=== PATIENT | female | born 1990 | race Caucasian/White ===

== ENCOUNTER 2019-12-06 14:40 | Emergency (ER) | payer MEDICAID, SELFPAY ==
[2019-12-06 14:42] VITALS: BP 148/104; PULSE 99; RESP 16; TEMP 36.6; O2SAT 100; BMI 25.7
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
[2019-12-06] MEDS: Amox/Clavulanate 875 MG Tablet PO (16:34)
== END 2019-12-06 16:36 | disposition home or self-care (01) ==
PROVIDERS: Emergency Provider Emergency Medicine; PCP Family Medicine
DX: S02.31XA Fracture of orbital floor, right side, initial encounter for closed fracture (principal); R40.2410 Glasgow coma scale score 13-15, unspecified time; W17.81XA Fall down embankment (hill), initial encounter; Y93.9 Activity, unspecified; Y92.9 Unspecified place or not applicable; F32.9 Major depressive disorder, single episode, unspecified; Z79.899 Other long term (current) drug therapy; F17.200 Nicotine dependence, unspecified, uncomplicated; F10.99 Alcohol use, unspecified with unspecified alcohol-induced disorder
CPT/HCPCS: 70450; 90715; 99283

== ENCOUNTER 2021-10-22 18:40 | Emergency (ER) | payer OTHER, MEDICAID, SELFPAY ==
[2021-10-22 19:01] VITALS: BP 132/95; PULSE 113; RESP 16; TEMP 36.9; O2SAT 97; BMI 25.7
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
== END 2021-10-22 21:43 | disposition home or self-care (01) ==
PROVIDERS: Emergency Provider Emergency Medicine; PCP Family Medicine; Visit Provider Emergency Medicine
DX: S16.1XXA Strain of muscle, fascia and tendon at neck level, initial encounter (principal); S09.90XA Unspecified injury of head, initial encounter; S80.02XA Contusion of left knee, initial encounter; F17.210 Nicotine dependence, cigarettes, uncomplicated; V53.5XXA Driver of pick-up truck or van injured in collision with car, pick-up truck or van in traffic accident, initial encounter; F41.9 Anxiety disorder, unspecified; Z79.899 Other long term (current) drug therapy
CPT/HCPCS: 70450; 72125; 73564; 99282

== ENCOUNTER → 2023-06-01 | Outpatient (CLI) | payer OTHER, SELFPAY ==
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
[2023-06-01 07:12] LABS: Mucous, Urine 0 SEEN /hpf (<or=2+)
[2023-06-01 09:53] LABS: Glucose, Dipstick Normal (Normal); Ketone-Dipstick Negative (Negative); Leukocyte Esterase-Dipstick 100 /ul (Negative); Nitrite-Dipstick Negative (Negative); Occult Blood-Urine 10 /ul (Negative); Protein-Dipstick Negative (Negative); Specific Gravity, Urine 1.015 (1.002-1.030); Urine Bilirubin Dipstick Negative (Negative); Urine Urobilinogen Normal (Normal)
[2023-06-01 09:57] LABS: Color, Urine Yellow (Yellow); Urine Clarity Sl Cloudy (Clear)
[2023-06-01 10:14] LABS: Red Blood Cells-Urine 0-5 SEEN /hpf (0-5); Squamous Epithelial Cells - UA 5-10 SEEN /hpf (5-10); White Blood Cells 5-10 SEEN /hpf (0-5)
[2023-06-01 10:15] LABS: Bacteria 3+ /hpf (None Seen)
[2023-06-04 15:07] LABS: Anti-Nuclear Antibody Test Negative (.); Anti-dsDNA Ab <1 IU/mL (0-9)
== END | disposition home or self-care (01) ==
LOC: MTLAB 07:08
PROVIDERS: PCP Family Medicine; Referring Provider Physician Assistant Medical; Visit Provider Physician Assistant Medical
DX: L93.2 Other local lupus erythematosus (principal)
CPT/HCPCS: 36415; 81001; 86038; 86225

== ENCOUNTER → 2023-06-09 | Outpatient (CLI) | payer OTHER, SELFPAY ==
[2023-06-09 07:08] LABS: Red Blood Cells-Urine 0 SEEN /hpf (0-5)
--- OUTSIDE RECORDS SUMMARY | 2023-06-09 07:22 | XMS RPT_ITS | CCD ---
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 Surface Operator Relationship Specialty Start Date End Date Jasmin Calzada MD [address] [place], [place] [id number] PCP - General Family Practice 07/22/20 Shama Rogers MD [address] [place], [place] [id number] Ophthalmology 03/11/20 Double Surface Operator Relationship Specialty Start Date End Date Jasmin Calzada MD [address] [place], [place] [id number] PCP - General Family Practice 07/22/20 Shama Rogers MD [address] [place] [address] Ophthalmology 03/11/20 Double Surface Operator Relationship Specialty Start Date End Date Jasmin Calzada MD [address] [place] [address] PCP - General Family Practice 07/22/20 Shama Rogers MD [address] [place] [address] Ophthalmology 03/11/20 Double Surface Operator Relationship Specialty Start Date End Date Jasmin Calzada MD [address] [place] [address] PCP - General Family Practice 07/22/20 Shama Rogers MD [address] [facility] [place] [place] [address] Ophthalmology 03/11/20 Double Surface Operator Relationship Specialty Start Date End Date Jasmin Calzada MD [address] [place] [address] PCP - General Family Medicine 07/22/20 Shama Rogers MD [address] [facility] [place] [address] Ophthalmology 03/11/20 Double Surface Operator Relationship Specialty Start Date End Date Jasmin Calzada MD [address] [place] [address] PCP - General Family Medicine 07/22/20 Shama Rogers MD [address] [place] [address] Ophthalmology 03/11/20 Double Surface Operator Relationship Specialty Start Date End Date Jasmin Calzada MD [address] [place] [address] PCP - General Family Medicine 07/22/20 Shama Rogers MD [address] [place] [place] [address] Ophthalmology 03/11/20 Double Surface Operator Relationship Specialty Start Date End Date Jasmin Calzada MD [address] [place], [place] [address] PCP - General Family Medicine 07/22/20 Shama Rogers MD [address] [place] [address] Ophthalmology 03/11/20 Double Surface Operator Relationship Specialty Start Date End Date Jasmin Calzada MD [address] [place] [address] PCP - General Family Medicine 07/22/20 Shama Rogers MD [address] [place] [address] Ophthalmology 03/11/20 Double Surface Operator Relationship Specialty Start Date End Date Jasmin Calzada MD [address] [place], [place] [id number] PCP - General Family Medicine 07/22/20 Shama Rogers MD [address] [place] [address] Ophthalmology 03/11/20 FOR RECORDS PERTAINING TO PATIENTS [...] BE BASED ON THE PRIMARY CLINICAL RECORDS. [facility] [employer] [facility]. provides no warranty or guarantee of the accuracy or completeness of information in this document.
[2023-06-09 10:36] LABS: Color, Urine Yellow (Yellow); Glucose, Dipstick Normal (Normal); Ketone-Dipstick 5 mg/dl (Negative); Leukocyte Esterase-Dipstick 100 /ul (Negative); Nitrite-Dipstick Negative (Negative); Occult Blood-Urine 10 /ul (Negative); Protein-Dipstick 15 mg/dl (Negative); Specific Gravity, Urine 1.015 (1.002-1.030); Urine Bilirubin Dipstick Negative (Negative); Urine Clarity Sl. Cloudy (Clear); Urine Urobilinogen 1 mg/dl (Normal); Urine pH 6.5 (5.0 - 8.0)
[2023-06-09 11:00] LABS: Bacteria 1+ /hpf (None Seen); Mucous, Urine RARE /hpf (<or=2+); Squamous Epithelial Cells - UA 0-5 SEEN /hpf (5-10); White Blood Cells 0-5 SEEN /hpf (0-5)
== END | disposition home or self-care (01) ==
LOC: MTLAB 07:04
PROVIDERS: PCP Family Medicine; Referring Provider Physician Assistant Medical; Visit Provider Physician Assistant Medical
DX: L93.2 Other local lupus erythematosus (principal)
CPT/HCPCS: 81001

== ENCOUNTER → 2023-06-21 | Outpatient (CLI) | payer OTHER, SELFPAY ==
[2023-06-21 14:58] LABS: Color, Urine Yellow (Yellow); Glucose, Dipstick Normal (Normal); Ketone-Dipstick 5 mg/dl (Negative); Leukocyte Esterase-Dipstick Negative /ul (Negative); Nitrite-Dipstick Negative (Negative); Occult Blood-Urine Negative /ul (Negative); Protein-Dipstick Negative (Negative); Urine Bilirubin Dipstick Negative (Negative); Urine Clarity Clear (Clear); Urine Urobilinogen Normal (Normal)
== END | disposition home or self-care (01) ==
LOC: MTLAB 14:00
PROVIDERS: PCP Family Medicine; Referring Provider Physician Assistant Medical; Visit Provider Physician Assistant Medical
DX: R31.9 Hematuria, unspecified (principal)
CPT/HCPCS: 81002

== ENCOUNTER 2025-02-03 09:31 | Inpatient (IN) | payer OTHER, SELFPAY ==
[2025-02-03] VITALS (18 sets, daily range): BP systolic 91–128; BP diastolic 64–85; PULSE 75–108; RESP 14–18; TEMP 35.8–36.6; O2SAT 96–100; BMI 31.4
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
[2025-02-03] MEDS: Lactated Ringers 1,000 ML 999 ML IV (09:40)
--- OUTSIDE RECORDS SUMMARY | 2025-02-03 09:45 | XMS RPT_ITS | CCD ---
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 [address] NEGATIVE PREDICTIVE VALUE Note Normal [facility] Comment on above: Order Comment: Robyn martinez Type: BLOOD SPECIMENOrdering Facility: [facility] Address: [address] [place] [address] Result Comment: The Negative Predictive Value (NPV) for trisomy 21, 18, and 13 is greater than 99%. The NPV for SCA and ESS cannot be calculated as SCA and ESS are only reported when an abnormality is detected. Performed By: #### M AT21 ####[facility] LABCLIA [id number] [place] [address] PERFORMANCE CHARACTERISTICS Note Normal [facility] Comment on above: Order Comment: Robyn martinez Type: BLOOD SPECIMENOrdering Facility: [facility] Address: [address] [place] [address] Result Comment: - ! Sex ! Accuracy: 99.4% ! ! ! ! Region (associated syndrome) ! Est. Sens# ! Est. Spec ! ! ! ! Trisomy 21 (Down Syndrome) ! 99.1% ! 99.9% ! ! ! ! Trisomy 18 (Morgan Syndrome) ! >99.9% ! 99.6% ! ! ! ! Trisomy 13 (Patau Syndrome) ! 91.7% ! 99.7% ! ! ! ! Sex Chromosome Aneuploidies## ! 96.2% ! 99.7% ! ! ! * As reported in [facility] database nstd37 [https://www.ncbi.nlm.nih.gov/dbvar/studies/nstd37/ ] # Estimated Sensitivity. Sensitivity estimated across the observed size distribution of each syndrome [per [facility] database nstd37] and across the range of fractions observed in routine clinical NIPT. Actual sensitivity can also be influenced by other factors such as the size of the event, total sequence counts, amplification bias, or sequence bias. ## Holguin gestation only. Performed By: #### M AT21 ####TabbloIA [id number] [place] [address] POSITIVE PREDICTIVE VALUE N/A Normal [facility] Comment on above: Order Comment: Speci men Type: BLOOD SPECIMENOrdering Facility: [facility] Address: [address] [place] [address] Performed By: #### M AT21 ####AddressReport LABThe RoundtableIA [id number] [place] [address] Reference Lab Test Method Comment Normal [facility] Comment on above: Order Comment: Speci men Type: BLOOD SPECIMENOrdering Facility: [facility] Address: [address] [place] [address] Result Comment: See Notes Circulating cell-free DNA was purified from the plasma component of maternal blood. The extracted DNA was then converted into a genomic DNA library for aneuploidy analysis of chromosomes 21, 18, and 13 via next generation sequencing.[1] Optional findings based on the test order include sex chromosome aneuploidy (SCA)[2], and enhanced sequencing series (ESS)[3], which will only be reported on as an additional finding when an abnormality is detected. SCA testing includes information on X and Y representation, while ESS testing includes deletions in selected regions (22q, 15q, 11q, 8q, 5p, 4p, 1p) and trisomy of chromosomes 16 and 22. Performed By: #### M AT21 ####[email or web address] [facility] LABCLIA [id number] [place] [address] Service comment (Unsp spec) [Interp] Comment Normal [facility] Comment on above: Order Comment: Speci men Type: BLOOD SPECIMENOrdering Facility: [facility] Address: [address] [place] [address] Result Comment: See Notes [employer]. is a subsidiary of [employer], using the brand [employer]. This test was developed and its performance characteristics determined by [employer]. It has not been cleared or approved by the Food and Drug Administration. This laboratory is certified under the Clinical Laboratory Improvement Amendments (CLIA) as qualified to perform high complexity clinical laboratory testing and accredited by the College [employer] [place] [employer] (CAP). If there is future clinical need for adding MaterniT GENOME testing, this specimen will be available until term. [facility] samples will not be retained beyond 60 days. [facility] patients will have to send a new sample for re-sequencing ([facility] Test Code: 355491). Performed By: #### M AT21 ####[email or web address] LABCLIA [id number] [place] [address] Sex Dosage of chromosome-specific cfDNA Nom (cfDNA) Comment Normal [facility] Comment on above: Order Comment: Speci men Type: BLOOD SPECIMENOrdering Facility: [facility] Address: [address] [place] [address] Result Comment: Cons istent with Male Performed By: #### M AT21 ####[email or web address] [facility] LABCLIA [id number] [place] [address] Test performance information Isak (Unsp spec) Comment Normal [facility] Comment on above: Order Comment: Robyn martinez Type: BLOOD SPECIMENOrdering Facility: [facility] Address: [address] [place] [address] Result Comment: The performance characteristics of the MaterniT(R) 21 PLUS laboratory-developed test (LDT) have been determined in a clinical validation study with women at increased risk for chromosomal aneuploidy.[1-4] Performed By: #### M AT21 ####[email or web address] [facility] LABCLIA [id number] [place] [address] Trisomy 13 risk Dosage of chromosome-specific cfDNA Ql (cfDNA) [Interp] Negative Normal [facility] Comment on above: Order Comment: Robyn martinez Type: BLOOD SPECIMENOrdering Facility: [facility] Address: [address] [place] [address] Performed By: #### M AT21 ####[email or web address] [facility] LABCLIA [id number] [place] [address] Trisomy 18 risk Dosage of chromosome-specific cfDNA Ql (Plasma cell-free+WBC DNA) [Interp] Negative Normal [facility] Comment on above: Order Comment: Robyn martinez Type: BLOOD SPECIMENOrdering Facility: [facility] Address: [address] [place] [address] Performed By: #### M AT21 ####[facility] LABCLIA [id number] [place] [address] TSH SerPl-aCncon 08-23-2024 TSH Qn 0.745 m[IU]/L Normal 0.270-4.200 [facility] Comment on above: Order Comment: Robyn martinez Type: BLOOD SPECIMENOrdering Facility: [facility] Address: [address] [place] [address] Result Comment: If t he patient is , TSH reference range varies by gestational period: First Trimester (weeks 9-12): 0.180-2.990 mIU/L Second Trimester: 0.110-3.980 mIU/L Third Trimester: 0.480-4.710 mIU/L Ricky Elena et al. A Practical Approach for the Verifications and Determination of Site- and Trimester-Specific Reference Intervals for Thyroid Function tests in . Thyroid, 2019:29:3:412-420. Willem Murphy, et al. 2017 Guidelines of the [place] Thyroid Association for the Diagnosis and Management of Thyroid Disease during and the . Thyroid, 2017:27:3:315-389. Performed By: #### 2 4323-8, LIPNF, 3016-3 ####[facility] LABCLIA [id number] [place] [id number] [place] Bacteria Ur Culton 5 Bacteria identified Cx Nom (U) ORGANISM ID: 1 10,000 -<50,000 CFU/ml Normal urogenital jesus Normal [facility] Comment on above: Performed By: #### 6 30-4 #### [facility] CLIA [id number] [address] [place] [id number] [place] CNCOon 08-05-2024 CNCO Letter Text Normal [facility] Examination level ultrasound on 08-05-2024 Indication First trimester anatomic survey Advanced maternal age Impression The patient is referred for a first trimester anatomy scan including nuchal translucency measurement as clinically indicated. - Single, live, intrauterine . - Mcroberts rump length measurement is consistent with the established gestational age. - No malformations visualized on a complete first trimester anatomic assessment. - The nuchal translucency measurement is 1.3 mm. - Not all structural malformations can be detected by ultrasound examination. Maternal Structures: Right Ovary: Size 30 mm x 19 mm x 15 mm Left Ovary: Size 16 mm x 21 mm x 14 mm Recommendations - A standard anatomic survey at 16 weeks can be offered and a detailed exam at 20 weeks is recommended for increased risk. Maternal Assessment Height 163 cm Height (ft) 5 ft Height (in) 4 in Physical Exam Initial weight (lb) 129 lb Initial BMI 22.13 kg/m Maternal assessment other: 4 Para 1 REMOTE READ Method Transabdominal ultrasound examination Hol[place] . Number of fetuses: 1 Dating LMP on: 05/05/2024 GA by LMP 13 w + 1 d JANET by LMP: 02/09/2025 GA by prior assessment 13 w + 1 d JANET by prior assessment: 02/09/2025 Ultrasound examination on: 08/05/2024 GA by U/S based upon: CRL GA by U/S 12 w + 5 d JANET by U/S: 02/12/2025 Assigned: based on stated JANET, selected on 08/05/2024 Assigned GA 13 w + 1 d Assigned JANET: 02/09/2025 General Evaluation Cardiac activity present Placenta: anterior Cord vessels: 3 vessel cord Amniotic fluid: normal amount Biometry Standard FHR 143 bpm CRL 63.7 mm 12w 5d 19% Hadlock NT 1.30 mm First Trimester Anatomy Calvarium: normal Falx cerebri: normal Choroid plexus: normal Profile: normal Nasal bone: normal Retronasal triangle: normal Maxilla: normal Mandible: normal Nuchal translucency: Unremarkable Situs: normal Cardiac position: normal Cardiac axis: normal 4-chamber view: normal 4-chamber view with color: normal 0-nzwxny-zcymyps view: normal Abdominal cord insertion: normal Stomach: normal Kidneys: normal Bladder: normal Color doppler of perivesical umbilical arteries: normal Vertebral alignment: normal Arms: normal Hands: normal Legs: normal Feet: normal Maternal Structures Uterus / Cervix Uterus: Visualized Uterus length 126 mm Uterus width 92 mm Uterus height 76 mm Uterus Vol 461.3 cm Ovaries / Tubes / Adnexa Rt ovary: Normal Rt ovary D1 30 mm Rt ovary D2 19 mm Rt ovary D3 15 mm Rt ovary Vol 4.5 cm Lt ovary: Visualized Lt ovary D1 16 mm Lt ovary D2 21 mm Lt ovary D3 14 mm Lt ovary Vol 2.4 cm Performed By: Sydney Curiel RDMS, RVT Read By: Harika Dobbins M.D. MATERNAL MEDICINE [facility] Radiology Study observation (narrative) [facility] Bacteria Ur Culton 5 Bacteria identified Cx Nom (U) ORGANISM ID: 1 >=100,000 CFU/ml Enterococcus faecalis Cephalosporins, clindamycin, and TMP-SMX are not effective for the treatment of enterococcal infections. ORGANISM ID: 1 (ENTEROCOCCUS FAECALIS) ANTIBIOTIC INTERPRETATION LUIS STATUS REFERENCE RANGE Ampicillin S <=2 F Susceptible <=8 , Resistant >8 Vancomycin S 2 F Susceptible <=4 , Intermediate >4 , Resistant >16 Nitrofurantoin S <=16 F Susceptible <=32 , Intermediate >32 , Resistant >64 Abnormal [facility] Comment on above: Performed By: #### 6 30-4 #### [facility] CLIA [id number] [address] [place] [address] [place] CBC W Auto Differential pane l (Bld)on 06-26-2024 Basophils (Bld) [#/Vol] 0.03 10*3/uL Normal <0.11 [facility] Comment on above: Order Comment: Speci men Type: BLOOD SPECIMENOrdering Facility: [facility] Address: [address] [place] [address] Performed By: #### 5 7021-8 ####[facility] [id number] [place] [address] [place] Basophils/100 WBC (Bld) 0.3 % Normal [facility] Comment on above: Order Comment: Speci men Type: BLOOD SPECIMENOrdering Facility: [facility] Address: [address] [place] [address] Performed By: #### 5 7021-8 ####[facility] [id number] [place] [address] [place] Differential cell count method Nom (Bld) Auto Normal [facility] Comment on above: Order Comment: Speci men Type: BLOOD SPECIMENOrdering Facility: [facility] Address: [address] [place] [address] Performed By: #### 5 7021-8 ####[facility] [id number] [place] [address] [place] Eosinophils (Bld) [#/Vol] 0.30 10*3/uL Normal <0.46 [facility] Comment on above: Order Comment: Speci men Type: BLOOD SPECIMENOrdering Facility: [facility] Address: [address] [place] [address] Performed By: #### 5 7021-8 ####[facility] [id number] [place] [address] [place] Eosinophils/100 WBC (Bld) 2.9 % Normal [facility] Comment on above: Order Comment: Speci men Type: BLOOD SPECIMENOrdering Facility: [facility] Address: [address] [place] [address] Performed By: #### 5 7021-8 ####[facility] [id number] [place] [address] [place] Erythrocyte distribution width (RBC) [Ratio] 12.1 % Normal 11.5-15.0 [facility] Comment on above: Order Comment: Speci men Type: BLOOD SPECIMENOrdering Facility: [facility] Address: [address] [place] [address] Performed By: #### 5 7021-8 ####[facility] [id number] [place] [address] [place] Hematocrit (Bld) [Volume fraction] 36.7 % Normal 36.0-46.0 [facility] Comment on above: Order Comment: Speci men Type: BLOOD SPECIMENOrdering Facility: [facility] Address: [address] [place] [address] Performed By: #### 5 7021-8 ####[facility] KOPATTERSONHARIKA [id number] [place] [address] [place] Hemoglobin (Bld) [Mass/Vol] 12.7 g/dL Normal 11.5-15. 5 [facility] Comment on above: Order Comment: Speci men Type: BLOOD SPECIMENOrdering Facility: [facility] Address: [address] [place] [address] Performed By: #### 5 7021-8 ####[facility] [id number] [place] [address] [place] Immature granulocytes (Bld) [#/Vol] 0.07 10*3/uL Normal <0.10 [facility] Comment on above: Order Comment: Speci men Type: BLOOD SPECIMENOrdering Facility: [facility] Address: [address] [place] [address] Performed By: #### 5 7021-8 ####[facility] [id number] [place] [address] [place] Immature granulocytes/100 WBC (Bld) 0.7 % Normal [facility] Comment on above: Order Comment: Speci men Type: BLOOD SPECIMENOrdering Facility: [facility] Address: [address] [place] [address] Performed By: #### 5 7021-8 ####[facility] [id number] [place] [address] [place] Lymphocytes (Bld) [#/Vol] 1.82 10*3/uL Normal 1.00-4.0 0 [facility] Comment on above: Order Comment: Speci men Type: BLOOD SPECIMENOrdering Facility: [facility] Address: [address] [place] [address] Performed By: #### 5 7021-8 ####[facility] KOMaddieNCLIA [id number] [place] [address] [place] Lymphocytes/100 WBC (Bld) 17.3 % Normal [facility] Comment on above: Order Comment: Speci men Type: BLOOD SPECIMENOrdering Facility: [facility] Address: [address] [place] [address] Performed By: #### 5 7021-8 ####[facility] [id number] [place] [address] [place] MCH (RBC) [Entitic mass] 29.7 pg Normal 26.0-34.0 [facility] Comment on above: Order Comment: Speci men Type: BLOOD SPECIMENOrdering Facility: [facility] Address: [address] [place] [address] Performed By: #### 5 7021-8 ####[facility] [id number] [place] [address] [place] MCHC (RBC) [Mass/Vol] 34.6 g/dL Normal 30.5-36.0 Anastacio [facility] Comment on above: Order Comment: Speci men Type: BLOOD SPECIMENOrdering Facility: [facility] Address: [address] [place] [address] Performed By: #### 5 7021-8 ####[facility] [id number] [place] [address] [place] MCV (RBC) [Entitic vol] 85.9 fL Normal 80.0-100.0 [facility] Comment on above: Order Comment: Speci men Type: BLOOD SPECIMENOrdering Facility: [facility] Address: [address] [place] [address] Performed By: #### 5 7021-8 ####[facility]ERNCLIA [id number] [place] [address] [place] Monocytes (Bld) [#/Vol] 0.64 10*3/uL Normal <0.87 [facility] Comment on above: Order Comment: Speci men Type: BLOOD SPECIMENOrdering Facility: [facility] Address: [address] [place] [address] Performed By: #### 5 7021-8 ####[facility] [id number] [place] [address] [place] Monocytes/100 WBC (Bld) 6.1 % Normal [facility] Comment on above: Order Comment: Speci men Type: BLOOD SPECIMENOrdering Facility: [facility] Address: [address] [place] [address] Performed By: #### 5 7021-8 ####[facility] [id number] [place] [address] [place] Neutrophils (Bld) [#/Vol] 7.66 10*3/uL High 1.45-7.5 0 [facility] Comment on above: Order Comment: Speci men Type: BLOOD SPECIMENOrdering Facility: [facility] Address: [address] [place] [address] Performed By: #### 5 7021-8 ####[facility] [id number] [place] [address] [place] Neutrophils/100 WBC (Bld) 72.7 % Normal [facility] Comment on above: Order Comment: Speci men Type: BLOOD SPECIMENOrdering Facility: [facility] Address: [address] [place] [address] Performed By: #### 5 7021-8 ####[facility] [id number] [place] [address] [place] Nucleated RBC (Bld) [#/Vol] 10*3/uL Normal <0.01 [facility] Comment on above: Order Comment: Speci men Type: BLOOD SPECIMENOrdering Facility: [facility] Address: [address] [place] [address] Performed By: #### 5 7021-8 ####[facility] KOSHADE [id number] [place] [address] [place] Nucleated RBC/100 WBC (Bld) [Ratio] 0.0 /100 WBC Normal [facility] Comment on above: Order Comment: Speci men Type: BLOOD SPECIMENOrdering Facility: [facility] Address: [address] [place] [address] Performed By: #### 5 7021-8 ####[facility] KOPATTERSONNCLIA [id number] [place] [address] [place] Platelet mean volume (Bld) [Entitic vol] 11.2 fL Normal 9.0-12.7 [facility] Comment on above: Order Comment: Speci men Type: BLOOD SPECIMENOrdering Facility: [facility] Address: [address] [place] [address] Performed By: #### 5 7021-8 ####[facility]ENTERNCTATYANAA [id number] [place] [address] [place] Platelets (Bld) [#/Vol] 163 10*3/uL Normal 150-400 [facility] Comment on above: Order Comment: Speci men Type: BLOOD SPECIMENOrdering Facility: [facility] Address: [address] [place] [address] Performed By: #### 5 7021-8 ####[facility]ENTERNCLIA [id number] [place] [address] [place] RBC (Bld) [#/Vol] 4.27 10*6/uL Normal 3.90-5.20 [facility] Comment on above: Order Comment: Speci men Type: BLOOD SPECIMENOrdering Facility: [facility] Address: [address] [place] [address] Performed By: #### 5 7021-8 ####[facility]CA [id number] [place] [address] [place] WBC (Bld) [#/Vol] 10.52 10*3/uL Normal 3.70-11.[address] [facility] Comment on above: Order Comment: Speci men Type: BLOOD SPECIMENOrdering Facility: [facility] Address: [address] [place] [address] Performed By: #### 5 7021-8 ####[facility] [id number] [place] [address] [place] HBV surface Ag Ser Qlon HBV surface Ag Ql (S) Negative Normal Negative [facility] Comment on above: Order Comment: Speci men Type: BLOOD SPECIMENOrdering Facility: [facility] Address: [address] [place] [address] Performed By: #### 5 195-3, 44155-1, 92132-5 ####[facility] LABIA [id number] [place] [address] [place] HCV Ab Ser Qlon 06-26-2024 HCV Ab Ql (S) Negative Normal Negative [facility] Comment on above: Order Comment: Speci men Type: BLOOD SPECIMENOrdering Facility: [facility] Address: [address] [place] [address] Result Comment: The result suggests no evidence of infection with Hepatitis C virus. Should recent infection be suspected, repeat testing may be considered 4-6 weeks after this draw. Performed By: #### 1 6128-1 ####[facility] [id number] [place] [address] [place] HIV 1+2 Ab IA Qlon HIV 1 and 2 Ab IA.rapid Nom (S/P/Bld) Normal [facility] Comment on above: Order Comment: Speci men Type: BLOOD SPECIMENOrdering Facility: [facility] Address: [address] [place] [address] Result Comment: Test not indicated. Performed By: #### 5 195-3, 68050-0, 82473-6 ####[facility] LABCLIA [id number] [place] [address] [place] HIV 1+2 Ab+HIV1 p24 Ag IA Ql Non-Reactive Normal Nonreactive [facility] Comment on above: Order Comment: Speci men Type: BLOOD SPECIMENOrdering Facility: [facility] Address: [address] [place] [address] Performed By: #### 5 195-3, 79608-1, 05334-9 ####[facility] LABIA [id number] [place] [address] [place] HIV immunoassay testing algorithm interpretation (S/P/Bld) [Interp] Normal [facility] Comment on above: Order Comment: Speci men Type: BLOOD SPECIMENOrdering Facility: [facility] Address: [address] [place] [address] Result Comment: No e vidence of HIV-1 or HIV-2 infection. Should recent infection be suspected, repeat testing may be considered 2-3 weeks after this draw. [place] Rev. Code 3701.243(E): This information has been disclosed to you from confidential records protected from disclosure by state law. ???You shall make no further disclosure of this information without the specific, written, and informed release of the individual to whom it pertains or as otherwise permitted by state law. A general authorization for the release of medical or other information is not sufficient for the purpose of the release of HIV test results or diagnoses. Performed By: #### 5 195-3, 06256-7, 67783-9 ####[facility] LABIA [id number] [place] [id number] [place] HbA1c (Bld)on 06-26-2024 Average glucose Estimated from glycated hemoglobin (Bld) [Mass/Vol] 82 mg/dL Normal [facility] Comment on above: Order Comment: Speci men Type: BLOOD SPECIMENOrdering Facility: [facility] Address: [address] [place] [address] Result Comment: eAG: (Estimated average glucose) is a calculated value from HgbA1c and is employer relations representative of the average blood glucose level in the last 2-3 month period. Performed By: #### 5 5454-3 ####[facility] LABCLIA [id number] [place] [address] [place] HbA1c (Bld) [Mass fraction] 4.5 % Normal 4.3-5.6 [facility] Comment on above: Order Comment: [facility] Type: BLOOD SPECIMENOrdering Facility: [facility] Address: [address] [place] [address] Result Comment: Amer [place] Diabetes Association guidelines indicate that patients with HgbA1c in the range 5.7-6.4% are at increased risk for development of diabetes, and intervention by lifestyle modification may be beneficial. HgbA1c greater or equal to 6.5% is considered diagnostic of diabetes. Performed By: #### 5 5454-3 ####[facility] LABIA [id number] [address] [place] RUBELLA IGG ANTIBODYon 06-26 RUBELLA IGG AB, QUAL Negative Abnormal Positive [facility] Comment on above: Order Comment: [facility]i [facility] Type: BLOOD SPECIMENOrdering Facility: [facility] Address: [address] [place] [address] Result Comment: The result suggests no history of Rubella vaccination or exposure to Rubella virus, however, some individuals with past history of Rubella vaccination may test negative using this test as immunity to Rubella virus wanes over time after vaccination. Please correlate with vaccination history if applicable. Performed By: #### R UBIGG ####[facility] LABCLIA [id number] [address] [place] Reagin and Treponema pallidu m IgG and IgM [Interp]on 06-26-2024 T. pallidum IgG+IgM IA Ql (S) Non-Reactive Normal Nonreactive [facility] Comment on above: Order Comment: Speci men Type: BLOOD SPECIMENOrdering Facility: [facility] Address: [address] [place] [address] Performed By: #### 5 195-3, 19912-4, 79746-3 ####[facility] LABCLIA [id number] [place] [address] [place] Reagin+T pallidum IgG+IgM Se rPl-Impon 06-26-2024 Reagin and Treponema pallidum IgG and IgM [Interp] Cannot exclude recent Treponemal infection if specimen collected within 7-10 days after appearance of suspect lesions or 2-3 weeks after an exposure. Clinical correlation is required. Normal [facility] Comment on above: Order Comment: Speci men Type: BLOOD SPECIMENOrdering Facility: [facility] Address: [address] [place] [address] Performed By: #### 5 195-3, 32141-8, 96512-2 ####[facility] LABCLIA [id number] [place] [address] [place] TYPE + SCREEN PRENATALon ABO O Normal [facility] Comment on above: Order Comment: Speci men Type: BLOOD SPECIMEN [facility]ing Facility: [facility] Address: [address] [place] [address] Performed By: #### T SPN #### [facility] CLIA [id number] [address] [place] [address] [place] Rh Nom (Bld) Positive Normal [facility] Comment on above: Order Comment: Speci men Type: BLOOD SPECIMEN [facility] Facility: [facility] Address: [address] [place] [address] Performed By: #### T SPN #### [facility] CLIA [id number] [address] [place] [address] [place] TYPE AND SCREEN EXPIRATION 06/29/2024 23:59 Normal [facility] Comment on above: Order Comment: Speci men Type: BLOOD SPECIMEN [facility]ing Facility: [facility] Address: [address] [place] [address] Performed By: #### T LY #### [facility] [place] [id number] [facility] [place] [id number] [id number] [place] Bacteria Ur Culton 5 Bacteria identified Cx Nom (U) ORGANISM ID: 1 >=100,000 CFU/ml Escherichia coli ORGANISM ID: 1 (ESCHERICHIA COLI) ANTIBIOTIC INTERPRETATION LUIS STATUS REFERENCE RANGE Ampicillin S 4 F Susceptible <=8 , Intermediate >8 , Resistant >16 Cefazolin S <=4 F Susceptible 0-16 , Intermediate <0 or >16 , Resistant >16 For uncomplicated urinary tract infections, cefazolin results can be used to predict susceptibility or resistance to cephalexin. Ceftriaxone S <=1 F Susceptible <=1 , Intermediate >1 , Resistant >=4 Cefepime S <=1 F Susceptible <=2 , Susceptible-Dose Dependent >2 , Resistant >=16 Ertapenem S <=0.5 F Susceptible <=0.5 , Intermediate >.5 , Resistant >1 Meropenem S <=0.25 F Susceptible <=1 , Intermediate >1 , Resistant >2 Ampicillin/Sulbact S <=2 F Susceptible <=8 , Intermediate >8 , Resistant >16 Piperacillin/Tazoba c S <=4 F Susceptible <16 , Susceptible-Dose Dependent >=16 , Resistant >=32 Gentamicin S <=1 F Susceptible <=2 , Intermediate >2 , Resistant >=8 Tobramycin S <=1 F Susceptible <4 , Intermediate >=4 , Resistant >=8 Trimeth sulfameth S <=20 F Susceptible <=40 , Resistant >40 Ciprofloxacin S <=0.25 F Susceptible <0.5 , Intermediate >=.5 , Resistant >=1 Nitrofurantoin S <=16 F Susceptible <=32 , Intermediate >32 , Resistant >64 Abnormal [facility] Comment on above: Performed By: #### 6 30-4 #### [facility] CLIA [id number] [address] [place] [address] [facility] C. trachomatis+N. gonorrhoea e DNA FRANCHESCA+probe Ql (Unsp spec)on 06-25-2024 C. trachomatis rRNA FRANCHESCA+probe Ql (Unsp spec) Not detected Normal Not detected [facility] Comment on above: Order Comment: Speci men Type: SWABOrdering Facility: [facility] Address: [address] [place] [address] Performed By: #### T RVAMP, 90458-4 ####[facility] LABCLIA [id number] [address] STATES OF [facility] N. 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 Confirmation of cardiac activity. Estimation of gestational age Impression cardiac activity is visualized, CRL is appropriate for clinical dates, corresponding to JANET 02/09/25 Recommendations Follow up for 1st Trimester Anatomy with Nuchal Translucency as clinically indicated if desired. Method Transabdominal and transvaginal ultrasound examination. View: Adequate visualization Holguin . Number of embryos: 1 Dating LMP on: 05/05/2024 GA by LMP 7 w + 2 d JANET by LMP: 02/09/2025 Ultrasound examination on: 06/25/2024 GA by U/S based upon: CRL GA by U/S 6 w + 5 d JANET by U/S: 02/13/2025 Assigned: based on the LMP, selected on 06/25/2024 Assigned GA 7 w + 2 d Assigned JANET: 02/09/2025 Biometry Standard FHR 144 bpm CRL 8.2 mm 6w 5d 4% Hadlock Assessment Gestational sac: visualized Location: intrauterine Yolk sac: visualized Embryo: visualized CRL 8.2 mm 6w 5d 4% Hadlock Cardiac activity: present FHR 144 bpm General Evaluation Cardiac activity present. FHR 144 bpm Performed By: Yoana Williamson CNP Read By: Yoana Williamson CNP MATERNAL MEDICINE [facility] Radiology Study observation (narrative) [facility] TRICHOMONAS VAGINALIS NAATon 06-25-2024 T. vaginalis DNA FRANCHESCA+probe Ql (Unsp spec) Not detected Normal Not detected [facility] Comment on above: Order Comment: Speci men Type: SWABOrdering Facility: [facility] Address: [address] [place] [address] Performed By: #### T RVAMP, 00871-7 ####[facility] LABCLIA [id number] [place] [address] [place] Urgent Care Visit Reporton 1 04-06-2023 Urgent Care Visit Report [facility] [address], [address] [place] [address] OFFICE VISIT Date of Service: 02/05/24 MR#: [id number] Acct: [id number] Name: KARAN LEIVA Rep #: [id number] 22 : 1990 Provider: KARLY Villegas Age/Sex: 33/F Location: [facility] Status: Signed Intake Vital Signs 02/07/22 12:26 02/05/24 11:21 Height 5 ft 4 in BP 112/74 Blood Pressure Location Rt brachial Position Sitting Respiration 12 Pulse 82 Pulse Source Monitor Temp 98.1 F Temp Source Oral Pulse Oximetry (%) 100 Oxygen Delivery Method room air Intake Visit Reasons: DIARRHEA, JOINT/MUSCLE ACHES Allergies latex Allergy (Verified 02/05/24 11:22) Rash fluoxetine (From Prozac) Adverse Reaction (Verified 02/05/24 11:22) Shortness of breath [facility] Medical History (Updated 02/05/24 @ 14:14 by Erik BRANDT, PA) Gastroenteritis Acute bronchitis, unspecified Back fracture Thoracic injury Pelvis fracture Anxiety delivery delivered Surgical History (Updated 10/22/21 @ 20:10 by Shu Draper) H/O eye surgery Social History Smoking Status: Current every day smoker tobacco type: cigarettes HPI HPI Details: KARAN LEIVA, is a 33 F who presents to the office today for initial evaluation 3-day history of nausea and vomiting and diarrhea, stating her daughter had similar symptoms beginning the day before her started. She notes over the last 24 hours her symptoms improved, nonetheless she is requesting a work excuse for today as she feels unable to report to work at this time. Currently without complaints of fever, chills, sweats, lightheadedness/diz ziness, nausea or vomiting though loose stool persists. No history of hematemesis or hematochezia/melena . No ynca-lgi-ogldnpj products taken to assist. No other associated symptoms and no other alleviating/aggrava ting factors. ROS Const Constitutional: No other (As above) Exam Const General: cooperative, healthy appearing and no acute distress Nutritional Appearance: average body habitus Orientation: alert and awake [facility] Head: normal to inspection Ears: hearing grossly normal bilaterally and external ears normal Nose: external nose normal Face and sinus: normal facial exam and face symmetric Eyes General: appearance normal, both eyes and all related structures Neck Neck: normal visual inspection, full ROM, no lymphadenopathy, no meningeal signs and supple Neck mass: No Thyroid: thyroid normal Lymphatic: no lymphadenopathy noted Chest Chest palpation inspection: normal inspection of the chest Resp Effort Inspection: normal respiratory effort and able to speak in complete sentences Auscultation: Bilateral: Clear to Auscultation Cardio Palpation: normal PMI Rate: regular rate Rhythm: regular rhythm Heart Sounds: S1 normal, S2 normal, no gallops, no murmurs and no rubs Pulses: radial pulses present GI Inspection: normal to inspection Palpation: soft, not firm, no guarding and tender (Mild generalized throughout) not in the epigastrum, not at McBurney's point, Meza's sign negative and with no rebound tenderness Skin General: no rashes or lesions noted Neuro General: patient alert, patient awake and patient oriented x3 Cognition: normal cognition Speech: speech normal Psych Appearance: grossly normal Mental Status: mental status grossly normal Mood: congruent mood Affect: normal affect Speech and Movement: speech and movement normal Attitude: cooperative Coding Level of Care Code Off vis,est,level 2 Diagnoses Gastroenteritis K52.9 Assessment and Plan Assessment and Plan (1) Gastroenteritis: Status: Acute Plan: Examination findings/recommenda tions given with patient acknowledged understanding. Work excuse provided. Supportive measures as instructed today. Follow-up with PCP in 3 to 5 days should symptoms not resolve, ED sooner should symptoms recur/worsen or any other concerns develop. Patient states acknowledging understanding all the above. This note was generated with [employer] dictation software. It may contain incorrect words, spelling, and punctuation that were not noted in checking the note before signing. 02/05/24 1415 Date Erik Weiner Signature: Date (if applicable) CC: Normal [facility] CBC panel Auto (Bld)on 06-26 Erythrocyte distribution width (RBC) [Ratio] 12.0 % 11.5 - 15.0 % [facility] Hematocrit (Bld) [Volume fraction] 39.3 % 36.0 - 46.0 % [facility] Hemoglobin (Bld) [Mass/Vol] 13.4 g/dL 11.5 - 15.5 g/dL [facility] MCH (RBC) [Entitic mass] 29.4 pg 26. 0 - 34.0 pg [facility] MCHC (RBC) [Mass/Vol] 34.1 g/dL 30.5 - 36.0 g/dL [facility] MCV (RBC) [Entitic vol] 86.2 fL 80.0 - 100.0 fL [facility] Nucleated RBC (Bld) [#/Vol] <0.01 k/ uL [facility] Platelet mean volume (Bld) [Entitic vol] 10.7 fL 9.0 - 12.7 fL [facility] Platelets (Bld) [#/Vol] 151 10*3/uL 150 - 400 k/uL [facility] RBC (Bld) [#/Vol] 4.56 10*6/uL 3.90 - 5.2 0 m/uL [facility] WBC (Bld) [#/Vol] 7.98 10*3/uL 3.70 - 11. 00 k/uL [facility] [place] [address].0 m[IU]/mL High <5.0 mIU/m L [facility] TYPE + SCREEN PRENATALon ABO group Nom (Bld) O [facility] Blood group antibody screen Ql Negative [facility] HIstorical Ab Scr Status Negative [facility] Rh Nom (Bld) Positive [facility] Type and Screen Expiration 06/30/2023 23:59 [facility] Bilirubin Test strip Ql (U)O rdered By: Jerrod Pedersen on 06-21-2023 Bilirubin Ql (U) Negative Negative [facility] Ketones Test strip Ql (U)Ord ered By: Jerrod Pedersen on 06-21-2023 Ketones Ql (U) 5 mg/dl Negative [facility] Nitrite Test strip Ql (U)Ord ered By: Jerrod Pedersen on 06-21-2023 Nitrite Ql (U) Negative Negative [facility] Protein Test strip Ql (U)Ord ered By: Jerrod Pedersen on 06-21-2023 Protein Ql (U) Negative Negative [facility] Urine blood detectionOrdered By: Jerrod Pedersen on 06-21-2023 RBC Ql (U) Negative Negative [facility] Urine clarityOrdered By: Andreas Pedersen on 06-21-2023 Clarity (U) Clear Clear [facility] Urine color determinationOrd ered By: Jerrod Pedersen on 06-21-2023 Color (U) Yellow Yellow [facility] Urine glucose detectionOrder ed By: Jerrod Pedersen on 06-21-2023 Glucose Ql (U) Normal mg/dl Normal [facility] Urine leukocyte esterase det ection by dipstickOrdered By: Jerrod Pedersen on 06-21-2023 Leukocyte esterase Test strip Ql (U) Negative Negative [facility] Urine pHOrdered By: Jerrod Rockwell oad on 06-21-2023 pH (U) 5.0 [pH] 5.0 - 8.0 [facility] Urine specific gravity measu rementOrdered By: Jerrod Pedersen on 06-21-2023 Specific gravity (U) [Rel density] 1.020 1.002-1.030 [facility] Urine urobilinogen measureme ntOrdered By: Jerrod Pedersen on 06-21-2023 Urobilinogen Ql (U) Normal mg/dl Normal [facility] Basophil percentageOrdered B y: Jerrod Pedersen on 06-09-2023 Basophil percentage 0-5 SEEN /hpf 0-5 [facility] Bilirubin Test strip Ql (U)O rdered By: Jerrod Pedersne on 06-09-2023 Bilirubin Ql (U) Negative Negative [facility] Ketones Test strip Ql (U)Ord ered By: Jerrod Pedersen on 06-09-2023 Ketones Ql (U) 5 mg/dl Negative [facility] Mucus LM Ql (Urine sed)Order ed By: Jerrod Pedersen on 06-09-2023 Mucus Ql (Urine sed) RARE /hpf [facility] Nitrite Test strip Ql (U)Ord ered By: Jerrod Pedersen on 06-09-2023 Nitrite Ql (U) Negative Negative [facility] No Panel InformationOrdered By: Jerrod Pedersen on 06-09-2023 Urine RBC 0 SEEN /hpf 0-5 [facility] Protein Test strip Ql (U)Ord ered By: Jerrod Pedersen on 06-09-2023 Protein Ql (U) 15 mg/dl Negative [facility] Squamous epithelial cells de tection in urine sediment by light microscopyOrdered By: Jerrod Pedersen on 06-09-2023 Epithelial cells.squamous LM Ql (Urine sed) 0-5 SEEN /hpf 5-10 [facility] Urine blood detectionOrdered By: Jerrod Pedersen on 06-09-2023 RBC Ql (U) 10 /ul Negative [facility] Urine clarityOrdered By: Andreas Pedersen on 06-09-2023 Clarity (U) Sl. Cloudy Clear [facility] Urine color determinationOrd ered By: Jerrod Pedersen on 06-09-2023 Color (U) Yellow Yellow [facility] Urine glucose detectionOrder ed By: Jerrod Pedersen on 06-09-2023 Glucose Ql (U) Normal mg/dl Normal [facility] Urine leukocyte esterase det ection by dipstickOrdered By: Jerrod Pedersen on 06-09-2023 Leukocyte esterase Test strip Ql (U) 100 /ul Negative [facility] Urine pHOrdered By: Jerrod more on 06-09-2023 pH (U) 6.5 [pH] 5.0 - 8.0 [facility] Urine sediment bacteria coun t by microscopy (number/high power field)Ordered By: Jerrod Pedersen on 06-09-2023 Bacteria LM.HPF (Urine sed) [#/Area] 1 /[HPF] None Seen [facility] Urine specific gravity measu rementOrdered By: Jerrod Pedersen on 06-09-2023 Specific gravity (U) [Rel density] 1.015 1.002-1.030 [facility] Urine urobilinogen measureme ntOrdered By: Jerrod Pedersen on 06-09-2023 Urobilinogen Ql (U) 1 mg/dl Normal [facility] Basophil percentageOrdered B y: Jerrod Pedersen on 06-01-2023 Basophil percentage 5-10 SEEN /hpf 0-5 [facility] Bilirubin Test strip Ql (U)O rdered By: Jerrod Pedersen on 06-01-2023 Bilirubin Ql (U) Negative Negative [facility] Ketones Test strip Ql (U)Ord ered By: Jerrod Pedersen on 06-01-2023 Ketones Ql (U) Negative Negative [facility] Mitotic spindle apparatus Ab [Titer] in Serum or PlasmaOrdered By: Jerrod Pedersen on 06-01-2023 Mitotic spindle apparatus Ab [Titer] Not Reportable [facility] Mucus LM Ql (Urine sed)Order ed By: Jerrod Pedersen on 06-01-2023 Mucus Ql (Urine sed) 0 SEEN /hpf [facility] Nitrite Test strip Ql (U)Ord ered By: Jerrod Pedersen on 06-01-2023 Nitrite Ql (U) Negative Negative [facility] No Panel InformationOrdered By: Jerrod Pedersen on 06-01-2023 Anti-Nuclear Antibody Screen Negative . [facility] Comment on above: Negative <1:80 Borde rline 1:80 Positive >1:80ICAP nomenclature: AC-0For more information about Hep-2 cell patterns useANApatterns.org, the official website for theInternational Consensus on Antinuclear Antibody (GIL)Patterns (ICAP).Performed at: [facility] [email or web address] [id number] Director: Seth Corbin PhD, Phone: [phone] Urine RBC 0-5 SEEN /hpf 0-5 [facility] Protein Test strip Ql (U)Ord ered By: Jerrod Pedersen on 06-01-2023 Protein Ql (U) Negative Negative [facility] Serum DNA double strand anti body assay (units/volume)Ordered By: Jerrod Pedersen on 06-01-2023 DNA double strand Ab Qn (S) [IU]/mL 0-9 [facility] Comment on above: Negative <5 Equivoca l 5 - 9 Positive >9 Serum antinuclear antibody ( GIL) detection with nuclear membrane pores pattern by immOrdered By: Jerrod Pedersen on 06-01-2023 Nuclear membrane pores nuclear Ab pattern IF Ql (S) Not Reportable [facility] Serum midbody antibody titer by immunofluorescenceOrdered By: Jerrod Pedersen on 06-01-2023 Midbody Ab IF (S) [Titer] Not Reportable [facility] Serum multiple nuclear dot p attern antinuclear IgG antibody (GIL) titer by immunofluoOrdered By: Jerrod Pedersen on 06-01-2023 Multiple nuclear dots nuclear IgG pattern IF (S) [Titer] Not Reportable [facility] Serum nucleolar nuclear anti body pattern titerOrdered By: Jerrod Pedersen on 06-01-2023 Nucleolar nuclear Ab pattern (S) [Titer] Not Reportable [facility] Serum proliferating cell nuc lear antigen (PCNA) antibody titer by immunofluorescenceOrdered By: Jerrod Pedersen on 06-01-2023 PCNA extractable nuclear Ab IF (S) [Titer] Not Reportable [facility] Serum smooth nuclear envelop e pattern antinuclear antibody (GIL) titerOrdered By: Jerrod Pedersen on 06-01-2023 Rim nuclear Ab pattern (S) [Titer] Not Reportable [facility] Serum speckled nuclear antib sandra pattern titerOrdered By: Jerrod Pedersen on 06-01-2023 Speckled nuclear Ab pattern (S) [Titer] Not Reportable [facility] Squamous epithelial cells de tection in urine sediment by light microscopyOrdered By: Jerrod Pedersen on 06-01-2023 Epithelial cells.squamous LM Ql (Urine sed) 5-10 SEEN /hpf 5-10 [facility] Thin prep Papanicolaou smear with manual screeningOrdered By: Jerrod Pedersen on 06-01-2023 Thin prep Papanicolaou smear with manual screening Not Reportable [facility] Urine blood detectionOrdered By: Jerrod Pedersen on 06-01-2023 RBC Ql (U) 10 /ul Negative [facility] Urine clarityOrdered By: Andreas Pedersen on 06-01-2023 Clarity (U) Sl Cloudy Clear [facility] Urine color determinationOrd ered By: Jerrod Pedersen on 06-01-2023 Color (U) Yellow Yellow [facility] Urine glucose detectionOrder ed By: Jerrod Pedersen on 06-01-2023 Glucose Ql (U) Normal mg/dl Normal [facility] Urine leukocyte esterase det ection by dipstickOrdered By: Jerrod Pedersen on 06-01-2023 Leukocyte esterase Test strip Ql (U) 100 /ul Negative [facility] Urine pHOrdered By: Jerrod more on 06-01-2023 pH (U) 5.0 [pH] 5.0 - 8.0 [facility] Urine sediment bacteria coun t by microscopy (number/high power field)Ordered By: Jerrod Pedersen on 06-01-2023 Bacteria LM.HPF (Urine sed) [#/Area] 3 /[HPF] None Seen [facility] Urine specific gravity measu rementOrdered By: Jerrod Pedersen on 06-01-2023 Specific gravity (U) [Rel density] 1.015 1.002-1.030 [facility] Urine urobilinogen measureme ntOrdered By: Jerrod Pedersen on 06-01-2023 Urobilinogen Ql (U) Normal mg/dl Normal [facility] HCG QUAL UR B/Oon 02-16-2022 status Negative neg - [facility] Quality Check Yes [facility] XR CHEST 2V FRONTAL/LATon [facility] XR Chest PA and Lateralon IMPRESSION: No acute radiographic abnormality. Hydro Station Operator: PSCB Transcribe Date/Time: Feb 16 2022 2:23P Dictated by : STEPHIE BANEGAS MD This examination was interpreted and the report reviewed and electronically signed by: STEPHIE BANEGAS MD on Feb 16 2022 2:24PM [facility] DIVISION OF RADIOLOGY * * *Final Report* * * DATE OF EXAM: Feb 16 2022 2:16PM WOX [id number] - XR CHEST 2V FRONTAL/LAT / PROCEDURE REASON: Cough, unspecified type * * * * Physician Interpretation * * * * EXAMINATION: CHEST RADIOGRAPH (2 VIEW FRONTAL & LATERAL) CLINICAL HISTORY: Cough, unspecified type MQ: XC2_6 EXAM DATE/TIME: 02/16/2022 2:16 PM COMPARISON: Chest x-ray on 01/27/2015 RESULT: Lines, tubes, and devices: None. Lungs and pleura: No consolidation. No lung mass. No pleural effusion. No pneumothorax. Cardiomediastinal silhouette: Normal cardiomediastinal silhouette. Bones and soft tissues: Unremarkable. DIVISION OF RADIOLOGY Provider, [facility] - 02/16/2022 * * *Final Report* * * DATE OF EXAM: Feb 16 2022 2:16PM WOX [id number] - XR CHEST 2V FRONTAL/LAT / PROCEDURE REASON: Cough, unspecified type * * * * Physician Interpretation * * * * EXAMINATION: CHEST RADIOGRAPH (2 VIEW FRONTAL & LATERAL) CLINICAL HISTORY: Cough, unspecified type MQ: XC2_6 EXAM DATE/TIME: 02/16/2022 2:16 PM COMPARISON: Chest x-ray on 01/27/2015 RESULT: Lines, tubes, and devices: None. Lungs and pleura: No consolidation. No lung mass. No pleural effusion. No pneumothorax. Cardiomediastinal silhouette: Normal cardiomediastinal silhouette. Bones and soft tissues: Unremarkable. IMPRESSION IMPRESSION: No acute radiographic abnormality. Hydro Station Operator: DEBBIE Transcribe Date/Time: Feb 16 2022 2:23P Dictated by : STEPHIE BANEGAS MD This examination was interpreted and the report reviewed and electronically signed by: STEPHIE BANEGAS MD on Feb 16 2022 2:24PM EST [facility] Radiology Study observation (narrative) [facility] XR Chest PA and LateralOrder ed By: [facility] Provider on 02-16-2022 [facility] Hemoglobin and Hematocriton 12-13-2019 Hematocrit (Bld) [Volume fraction] 40.0 % 36 - 46 % [facility] Hemoglobin (Bld) [Mass/Vol] 13.6 g/dL 12 - 16 g/dL [facility] Interpretation and review of laboratory results Normal [facility] POC , Urineon 12-12 Beta HCG ( test) Ql (U) Dilute urine specimens, as indicated by a low specific gravity (<1.010) may not contain employer relations representative levels of hCG. If is still suspected, a serum test or repeat urine test using a first morning urine specimen should be considered. [facility] HCG ( test) Ql (U) Negative Negative [facility] Interpretation and review of laboratory results Normal [facility] SCAN OTHER ORDERSon 12-13-19 20 Ordered by an unspecified provider. [facility] COVID-19, MOLECULARon 2019 SARS-COV-2 RNA (ANGIE) Not Detected Normal Not Detecte d [facility] Comment on above: Result Comment: This test was performed under the FDA's Emergency Use Authorization (EUA). Testing was performed using the Toyin SARS-CoV-2 assay on the Angie Toyin 6800 System. This test has not been approved for use in asymptomatic patients and its performance in this patient population has not been evaluated. Negative results do not rule out the presence of SARS-CoV-2/COVID-19. Fact sheets for this EUA can be found at the following links: For Healthcare Providers: https://www.fda.gov/media/002919/download For Patients: https://www.fda.gov/media/955593/download Performed By: #### L [id number] #### [facility] [address] [place] [address] Herbert Collado M.D. [id number] Vital Signs Date Time Vital Sign Value Performing Clinician Renata miranda 12-25-2024 10:11-0400 Body height 162.[address] Herman Calzada MD Work Phone: [phone] [place] [address] 12-25-2024 10:11-0400 Body mass index (BMI) [Ratio] 28.3 kg/m2 Dr. Herman Calzada MD Work Phone: [phone] [place] [address] 12-25-2024 10:11-0400 Body temperature 98.3 [degF] Dr. Herman Calzada MD Work Phone: [phone] [place] [address] 12-25-2024 10:11-0400 Body weight 74.[address] Herman Calzada MD Work Phone: [phone] [place] [address] 12-25-2024 10:11-0400 Diastolic blood pressure 68 mm[Hg] Dr. Herman Calzada MD Work Phone: [phone])[phone] [place] [address] 12-25-2024 10:11-0400 Heart rate 103 /min Dr. Herman Calzada MD Work Phone: 8([phone])[phone] [place] [address] 12-25-2024 10:11-0400 SaO2% (BldA) [Mass fraction] 98 % Dr. Herman Calzada MD Work Phone: 3([phone])[phone] [place] [address] 12-25-2024 10:11-0400 Systolic blood pressure 122 mm[Hg] Dr. Herman Calzada MD Work Phone: [phone] [place] [address] 12-05-2024 11:37-0400 Body mass index (BMI) [Ratio] 28.32 kg/m2 Ivy Gonzales MD Work Phone: [facility] 12-05-2024 11:37-0400 Body weight 74.84 kg Ivy Gonzales MD Work Phone: [facility] 12-05-2024 11:37-0400 Diastolic blood pressure 68 mm[Hg] Ivy Gonzales MD Work Phone: [facility] 12-05-2024 11:37-0400 Systolic blood pressure 114 mm[Hg] Ivy Gonzales MD Work Phone: [facility] 11-21-2024 07:12-0400 Body mass index (BMI) [Ratio] 27.81 kg/m2 Lore Haury [employer] Work Phone: [facility] 11-21-2024 07:12-0400 Body weight 73.48 kg Lore Haury [employer] Work Phone: [facility] 11-21-2024 07:12-0400 Diastolic blood pressure 60 mm[Hg] Lore Haury [employer] Work Phone: [facility] 11-21-2024 07:12-0400 Systolic blood pressure 102 mm[Hg] Lore Haury [employer] Work Phone: [facility] 10-23-2024 06:58-0400 Body mass index (BMI) [Ratio] 25.92 kg/m2 Lore Haury [employer] Work Phone: [facility] 10-23-2024 06:58-0400 Body weight 68.49 kg Lore Haury [employer] Work Phone: [facility] 10-23-2024 06:58-0400 Diastolic blood pressure 64 mm[Hg] Lore Haury [employer] Work Phone: [facility] 10-23-2024 06:58-0400 Systolic blood pressure 108 mm[Hg] Lore Haury [employer] Work Phone: [facility] 09-24-2024 08:49-0400 Body mass index (BMI) [Ratio] 24.55 kg/m2 Ivy Gonzales MD Work Phone: [facility] 09-24-2024 08:49-0400 Body weight 64.86 kg Ivy Gonzales MD Work Phone: [facility] 09-24-2024 08:49-0400 Diastolic blood pressure 60 mm[Hg] Ivy Gonzales MD Work Phone: [facility] 09-24-2024 08:49-0400 Systolic blood pressure 100 mm[Hg] Ivy Gonzales MD Work Phone: [facility] 09-05-2024 08:55-0400 Body mass index (BMI) [Ratio] 24.03 kg/m2 Ivy Gonzales MD Work Phone: [facility] 09-05-2024 08:55-0400 Body weight 63.5 kg Ivy Gonzales MD Work Phone: [facility] 09-05-2024 08:55-0400 Diastolic blood pressure 66 mm[Hg] Ivy Gonzales MD Work Phone: [facility] 09-05-2024 08:55-0400 Systolic blood pressure 104 mm[Hg] Ivy Gonzales MD Work Phone: [facility] 08-23-2024 08:03-0400 Body mass index (BMI) [Ratio] 23.31 kg/m2 Jasmin Calzada MD Work Phone: [facility] 08-23-2024 08:03-0400 Body weight 61.6 kg Jasmin Calzada MD Work Phone: [facility] 08-23-2024 08:03-0400 Diastolic blood pressure 62 mm[Hg] Jasmin Calzada MD Work Phone: [facility] 08-23-2024 08:03-0400 Heart rate 79 /min Jasmin Calzada MD Work Phone: [facility] 08-23-2024 08:03-0400 Respiratory rate 16 /min Jasmin Calzada MD Work Phone: [facility] 08-23-2024 08:03-0400 SaO2% (BldA) [Mass fraction] 98 % Jasmin Calzada MD Work Phone: [facility] 08-23-2024 08:03-0400 Systolic blood pressure 116 mm[Hg] Jasmin Calzada MD Work Phone: [facility] 08-05-2024 08:37-0400 Body mass index (BMI) [Ratio] 22.49 kg/m2 Julia Cordero MD Work Phone: [facility] 08-05-2024 08:37-0400 Body weight 59.42 kg Julia Cordero MD Work Phone: [facility] 08-05-2024 08:37-0400 Diastolic blood pressure 60 mm[Hg] Julia Cordero MD Work Phone: [facility] 08-05-2024 08:37-0400 Systolic blood pressure 98 mm[Hg] Julia Cordero MD Work Phone: [facility] 07-23-2024 09:45-0400 Body mass index (BMI) [Ratio] 22.59 kg/m2 Ivy Gonzales MD Work Phone: [facility] 07-23-2024 09:45-0400 Body weight 59.69 kg Ivy Gonzales MD Work Phone: [facility] 07-23-2024 09:45-0400 Diastolic blood pressure 60 mm[Hg] Ivy Gonzales MD Work Phone: [facility] 07-23-2024 09:45-0400 Systolic blood pressure 100 mm[Hg] Ivy Gonzales MD Work Phone: [facility] 06-25-2024 08:14-0400 Body height 162.6 cm Yoana Teri [employer] Work Phone: [facility] 06-25-2024 08:14-0400 Body mass index (BMI) [Ratio] 22.14 kg/m2 Yoana Teri [employer] Work Phone: [facility] 06-25-2024 08:14-0400 Body weight 58.51 kg Yoana Teri [employer] Work Phone: [facility] 06-25-2024 08:14-0400 Diastolic blood pressure 66 mm[Hg] Yoana Teri [employer] Work Phone: [facility] 06-25-2024 08:14-0400 Systolic blood pressure 112 mm[Hg] Yoana Williamson [employer] Work Phone: [facility] 06-29-2023 13:32-0400 Body weight 61.69 kg Magdaleno Robertson MD Work Phone: [facility] 06-29-2023 13:32-0400 Diastolic blood pressure 76 mm[Hg] Magdaleno Robertson MD Work Phone: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 coated (ECOTRIN LOW STRENGTH) 81 mg EC tablet Take 1 tablet by mouth once daily. 90 tablet 3 vit no.124/iron/folic ( VITAMIN ORAL) Take by mouth once daily. Clobetasol Propionate 0.05 % sham Apply to affected area. ketoconazole (NIZORAL) 2 % shampoo No current facility-administered medications for this visit. ALLERGIES: Drug Ingredient [Benzoyl Peroxide], Fluoxetine, Latex, Lexapro [Escitalopram], Prozac [Fluoxetine Hcl], Seasonal Allergies, Smoke, and Wellbutrin [Bupropion Hcl] PERSONAL HISTORY: SOCIAL HISTORY[1] FAMILY HISTORY: FAMILY HISTORY Problem Relation Age of Onset Heart Mother Glaucoma Mother other (cornea transplant) Mother multiple No Known Problems Father other (over dose) Brother Heart Maternal Grandmother Hypertension Maternal Grandmother Skin Cancer Maternal Grandmother basal cell Cancer Maternal Grandfather liver with metastis Prostate Cancer Paternal Grandfather No Known Problems Daughter Cancer Other 2 first cousins with skin REVIEW OF SYMPTOMS: negative except as noted above PHYSICAL EXAMINATION: VITALS: Weight 78.9 kg (174 lb), last menstrual period 05/05/2024. GENERAL: The patient is well nourished, well hydrated in no acute distress. , The patient is oriented to time, place, and person. NECK: full range of motion LUNGS: Clear to auscultation bilaterally. no wheezes, rhonchi or rales HEART: Regular rate and rhythm, Normal heart sounds, and No murmurs or gallops IMPRESSION: 34yo @ 37.1 weeks PLAN: repeat cs at 39 weeks Pt has been counseled on risks/benefits and alternatives of surgery including but not limited to anesthesia, bleeding, infection, injury to pelvic structures including bowel, bladder, ureters and vessels. Risk of transfusion reviewed. Pre and post op instructions reviewed I have reviewed and updated past medical and surgical history, medications and allergies Julia Cordero MD [1] Social History Tobacco Use Smoking status: Every Day Current packs/day: 0.50 Average packs/day: 0.5 packs/day for 20.0 years (10.0 ttl pk-yrs) Types: Cigarettes Smokeless tobacco: Former Types: Chew Tobacco comments: 3 cigarettes daily and low nicotine vape as of 02/24/23 Vaping Use Vaping status: current everyday user Substances: Flavoring Devices: Pre-filled pod Substance Use Topics Alcohol use: Not Currently Comment: not while Drug use: Not Currently Types: Cocaine, Marijuana [facility] 12-25-2024 Progress note [facility] 12-05-2024 Progress note Formatting of t his note might be different from the original. KJ - S: Karan denies LOF, contractions or vaginal bleeding. She just finished 3hr GTT. O: 30w4d, see flow sheet SENSITIVE EXAM: Sensitive exam not performed. A/P: Assessment & Plan Previous section Repeat scheduled Multigravida of advanced maternal age in third trimester (HCC) 30 weeks gestation of (HCC) 3hr GTT - results pending. Discussed low carb diet and walking daily if screens negative. Reviewed PTL & FM precautions Ivy Gonzales MD [facility] 12-05-2024 Miscellaneous Notes KJ - S: Karan denies LOF, contractions or vaginal bleeding. She just finished 3hr GTT. O: 30w4d, see flow sheet SENSITIVE EXAM: Sensitive exam not performed. A/P: Assessment & Plan Previous section Repeat scheduled Multigravida of advanced maternal age in third trimester (HCC) 30 weeks gestation of (HCC) 3hr GTT - results pending. Discussed low carb diet and walking daily if screens negative. Reviewed PTL & FM precautions Ivy Gonzales MD documented in this encounter [facility] 12-05-2024 Instructions Richi Montague LPN - 12/05/2024 11:35 AM EDT SEQUENTIAL SCREENINGS The [facility] offers sequential screenings for women who are interested in screenings for chromosomal abnormalities and certain defects during a . The sequential screen combines ultrasound and blood tests to determine the risk of chromosomal abnormalities, including Down's Syndrome (Trisomy 21) and Trisomy 18, as well as open neural tube defects including spina bifida. Ultrasound examination is performed between 11 weeks and 13 weeks gestational age. Blood tests are drawn after the ultrasound and again later in the between 15 and 21 weeks gestational age. Please let your physician know if you are interested in this testing. It will require an appointment with our garage door technician. This is not an ultrasound performed by a physician in our office during a routine visit. SIGNS AND SYMPTOMS OF LABOR 1. Contractions every 10 minutes or more often 2. Clear, pink, or brownish fluid (water) leaking from vagina 3. Feeling that baby is pushing down, pressure 4. Low, dull backache 5. Cramps that feel like a period 6. Cramps with or without diarrhea If you notice any of the above symptoms, contact our office at [phone] and ask to speak with a nurse. After hours, you can call doctors registry at [phone] OR call [facility] at [phone] and ask to have the doctor consulting group analyst paged. If you consider this an emergency, dial 9-1-2 or go to your nearest emergency department. NEED HELP? Are you dealing with a violent or abusive relationship? Are you a victim of rape or sexual assult? Call [facility] ([place]) 24 hour Crisis Hotline: 736.247.3437 or 867-501-7259. MANUAL Your Guide to a Healthy manual is now on-line. Visit [email or web address] to download your free copy documented in this encounter [facility] 11-21-2024 Note HNO ID: [id number] Author: ANIYAH GALINDO MA Service: ? 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 Karan Leiva presents today for a vaccination of Tdap. Patient denies an allergy to latex: has latex allergy- gets a rash Patient denies a severe (life-threatening) allergy to a previous dose of Tdap, DTP, DTaP, DT or Td vaccine. Yes Patient denies history of epilepsy or neurological problems: Yes Patient is afebrile and denies being moderately or severely ill: Yes Patient denies history of Guillain-[place] Syndrome (a severe paralytic illness): No Tdap Adacel injection was given without incident. See immunizations for details of immunizations administered today. VIS sheet provided: Yes Provider Lore Abdalla APRN.[employer] was present in office at time of injection. Aniyah Galindo MA [facility] 11-21-2024 History of Presen t illness Narrative Patient identified by name and date of . Karan Leiva presents today for a vaccination of Tdap. Patient denies an allergy to latex: has latex allergy- gets a rash Patient denies a severe (life-threatening) allergy to a previous dose of Tdap, DTP, DTaP, DT or Td vaccine. Yes Patient denies history of epilepsy or neurological problems: Yes Patient is afebrile and denies being moderately or severely ill: Yes Patient denies history of Guillain-[place] Syndrome (a severe paralytic illness): No Tdap Adacel injection was given without incident. See immunizations for details of immunizations administered today. VIS sheet provided: Yes Provider Lore Abdalla APRN.[employer] COUNSEL was present in office at time of injection. Aniyah Galindo MA documented in this encounter [facility] 11-21-2024 Progress note Formatting of t his note might be different from the original. EH - S: Karan is a 34 year old female who presents at 28w4d for a routine visit. Feeling movement. Denies headache, visual changes, chest pain, shortness of breath, vaginal bleeding, leakage of fluid, or dysuria. Feeling well, no complaints. O: See flow sheet Gen: No apparent distress Abd: Gravid, nontender, S=D ASSESSMENT/PLAN: Supervision of high risk in third trimester ([facility]) - ICD9: V23.9, ICD10: O09.93 (primary diagnosis) - Continue PNV and LDA 28 weeks gestation of ([facility]) - ICD9: V22.2, ICD10: Z3A.28 - 1 hour GCT today - Rh positive - TDAP today - LARC form reviewed and signed. Declines. - Depression screen positive: anxiety - plan form discussed and given to Karan - Reviewed how to pre register through [facility] Rubella non-immune status, antepartum ([facility]) - ICD9: 646.83, V15.83, ICD10: O09.899, Z28.39 Tobacco use disorder - ICD9: 305.1, ICD10: F17.200 - No longer smoking, vaping now - Continue to encourage cessation Hx of section - ICD9: V45.89, ICD10: Z98.891 - Planning repeat c/s 02/03 at 12 pm with DM Multigravida of advanced maternal age in third trimester ([facility]) - ICD9: 659.63, ICD10: O09.523 - Age 34 at JANET Anxiety with depression - ICD9: 300.4, ICD10: F41.8 - PHQ 2 positive - Declines counseling due to work schedule - Declines medication - Reports coping well and that this has been ongoing, no changes - Denies thoughts of self harm - Mental health resources provided - To notify should she change her mind about counseling or medication PTL precautions and kick counts reviewed. RTO in 2 weeks or sooner as needed. Lore Abdalla APRN.JIE [facility] 11-21-2024 Miscellaneous Notes EH - S: Karan is a 34 year old female who presents at 28w4d for a routine visit. Feeling movement. Denies headache, visual changes, chest pain, shortness of breath, vaginal bleeding, leakage of fluid, or dysuria. Feeling well, no complaints. O: See flow sheet Gen: No apparent distress Abd: Gravid, nontender, S=D ASSESSMENT/PLAN: Supervision of high risk in third trimester ([facility]) - ICD9: V23.9, ICD10: O09.93 (primary diagnosis) - Continue PNV and LDA 28 weeks gestation of ([facility]) - ICD9: V22.2, ICD10: Z3A.28 - 1 hour GCT today - Rh positive - TDAP today - LARC form reviewed and signed. Declines. - Depression screen positive: anxiety - plan form discussed and given to Karan - Reviewed how to pre register through [facility] Rubella non-immune status, antepartum ([facility]) - ICD9: 646.83, V15.83, ICD10: O09.899, Z28.39 Tobacco use disorder - ICD9: 305.1, ICD10: F17.200 - No longer smoking, vaping now - Continue to encourage cessation Hx of section - ICD9: V45.89, ICD10: Z98.891 - Planning repeat c/s 02/03 at 12 pm with DM Multigravida of advanced maternal age in third trimester ([facility]) - ICD9: 659.63, ICD10: O09.523 - Age 34 at JANET Anxiety with depression - ICD9: 300.4, ICD10: F41.8 - PHQ 2 positive - Declines counseling due to work schedule - Declines medication - Reports coping well and that this has been ongoing, no changes - Denies thoughts of self harm - Mental health resources provided - To notify should she change her mind about counseling or medication PTL precautions and kick counts reviewed. RTO in 2 weeks or sooner as needed. Lore Abdalla APRN.CNP documented in this encounter [facility] 11-21-2024 Instructions Aniyah Galindo MA - 11/21/2024 6:55 AM EDT SEQUENTIAL SCREENINGS The [facility] offers sequential screenings for women who are interested in screenings for chromosomal abnormalities and certain defects during a . The sequential screen combines ultrasound and blood tests to determine the risk of chromosomal abnormalities, including Down's Syndrome (Trisomy 21) and Trisomy 18, as well as open neural tube defects including spina bifida. Ultrasound examination is performed between 11 weeks and 13 weeks gestational age. Blood tests are drawn after the ultrasound and again later in the between 15 and 21 weeks gestational age. Please let your physician know if you are interested in this testing. It will require an appointment with our garage door technician. This is not an ultrasound performed by a physician in our office during a routine visit. SIGNS AND SYMPTOMS OF LABOR 1. Contractions every 10 minutes or more often 2. Clear, pink, or brownish fluid (water) leaking from vagina 3. Feeling that baby is pushing down, pressure 4. Low, dull backache 5. Cramps that feel like a period 6. Cramps with or without diarrhea If you notice any of the above symptoms, contact our office at [phone] and ask to speak with a nurse. After hours, you can call doctors registry at [phone] OR call [facility] at [phone] and ask to have the doctor consulting group analyst paged. If you consider this an emergency, dial 0-8-6 or go to your nearest emergency department. NEED HELP? Are you dealing with a violent or abusive relationship? Are you a victim of rape or sexual assult? Call [facility] ([place]) 24 hour Crisis Hotline: 182.946.4989 or 328-652-1032. MANUAL Your Guide to a Healthy manual is now on-line. Visit [email or web address] to download your free copy documented in this encounter [facility] 10-23-2024 Instructions Lore Abdalla APRN.[employer] COUNSEL - 10/23/2024 7:11 AM EDT How SMOKING Affects Your and Your Baby During Smoking during affects you and your baby's health before, during and after your baby is born. The nicotine (the addictive substance in cigarettes), carbon monoxide and numerous other poisons you inhale from a cigarette are carried through your bloodstream and go directly to your baby. Smoking while will: Lower the amount of oxygen available to you and your growing baby Increase your baby's heart rate Increase the chances of miscarriage and stillbirth Increase the risk that your baby is born prematurely and/or born with low weight Increase your baby's risk of developing respiratory problems The more cigarettes you smoke per day, the greater your baby's chances of developing these and other health problems. There is no "safe" level of smoking for your baby's health. How does secondhand smoke affect me and my baby? Second-hand smoke (also called passive smoke or environmental tobacco smoke) is the combination of smoke from a burning cigarette and smoke exhaled by a smoker. The smoke that merrill off the end of a cigarette or cigar contains more harmful substances ( tar, carbon monoxide, nicotine and others) than the smoke inhaled by the smoker. If you are regularly exposed to second-hand smoke, you increase your and your baby's risk of developing lung cancer, heart disease, emphysema, allergies, asthma and other health problems. Babies exposed to second-hand smoke may also develop reduced lung capacity and are at higher risk for sudden infant syndrome (SIDS). What happens if I keep smoking after my baby is born? If you continue to smoke after your baby is born, you increase his or her chance of developing certain illnesses and problems, such as: Frequent colds Bronchitis and pneumonia Asthma Chronic coughs Ear infections High blood pressure Learning and behavior problems later in childhood Why should I quit smoking? Smoking is the leading cause of preventable in the [place] By quitting you can: Prolong your life Lower your risk of heart disease Lower your risk of developing lung, throat, mouth, pancreatic and bladder cancer Lower your risk of developing breathing problems such as chronic obstructive pulmonary disease (COPD), asthma and emphysema Lower your risk of developing allergies Raise your energy level Improve your appearance; your skin will wrinkle less and look better, and your fingers and teeth will not be yellow Improve your sense of smell and taste Feel healthier overall, with improved self-esteem Save a lot of money (the average smoker spends $740 a year for cigarettes!) How can I quit smoking? There is no one way to quit smoking that works for everyone, since each person has different smoking habits. Here are some tips: Hide your matches, lighters, and ashtrays. Take a deep breath and hold it for five to ten seconds whenever you get the urge to smoke. Designate your home a non-smoking area. Ask people who smoke not to smoke around you. Drink less caffeinated beverages; caffeine may stimulate your urge to smoke. Also avoid alcohol, as it also may increase your urge to smoke and can be harmful to your baby. Change your habits connected with smoking. If you smoked while driving or when feeling stressed, try other activities to replace smoking. Keep mints or gum (preferably sugarless) on hand for those times when you get the urge to smoke. Stay active to keep your mind off smoking and help relieve tension: take a walk, exercise, read a book or try a new a hobby. Look for support from others. Join a support group or smoking cessation program, such as the [facility] Smoking Cessation Program. For more information, please call . Do not go places where many people are smoking such as bars or clubs, and smoking sections of restaurants. Should I use a nicotine replacement to help me quit? Nicotine gum and patches release nicotine into the bloodstream of the smoker who is trying to quit. Although these products can reduce withdrawal symptoms and decrease cravings in smokers who are trying to quit, nicotine is quite toxic and potentially harmful to the fetus (as well as to the infant who is ). Therefore, these and any other products containing nicotine are not always ecommended for the woman who is trying to quit smoking. They may be prescribed in indivdual cases. How will I feel when I quit? The benefits of not smoking start within days of quitting. After you quit, you and your baby's heart beat will return to normal, and your baby will be less likely to develop breathing problems. You may have symptoms of withdrawal because your body is used to nicotine, the addictive substance in cigarettes. You may crave cigarettes, be irritable, feel very hungry, cough often, get headaches or have difficulty concentrating. The withdrawal symptoms are only temporary. They are strongest when you first quit but will go away within 10 to 14 days. When withdrawal symptoms occur, stay in control. Think about your reasons for quitting. Remind yourself that these are signs that your body is healing and getting used to being without cigarettes. Remember that withdrawal symptoms are easier to treat than the major diseases that smoking can cause. Even after the withdrawal is over, expect periodic urges to smoke. However, these cravings are generally short-lived and will go away whether you smoke or not. Don't Smoke! If you smoke again (called a relapse) do not lose hope. Seventy-five percent of those who quit relapse. Most smokers quit three times before they are successful. If you relapse, don't give up! Plan ahead and think about what you will do next time you get the urge to smoke. (This information is provided by the [facility] and is not intended to replace the medical advice of your doctor or health care provider. Please consult your health care provider for advice about a specific medical condition. For additional written health information, please call the Cancer Answer Line at [facility] Monday - Monday 8-4:30 for assistance: [phone]. Or visit [email or web address]/) [facility] s Smoking Cessation Program The [facility] Smoking Cessation Program is a comprehensive, multifaceted program that can be tailored to your individual needs. We offer a variety of services designed to help you throughout the process, including office visits, distance health visits (virtual or telephone), and the eCoach program or pharmacy consultations. To schedule, call [phone] Appointments: An office visit: This is a one-on-one approach where you go to an office and meet with the provider to discuss your options for quitting. Distance health visits: This type of visit can be completed via virtual visit or telephone visit. Virtual visits require a smartphone, tablet or computer with access to a webcam, microphone and Internet connection. You will need to sign up for Tutor Assignment prior to your virtual visit. Telephone visits can be completed via audio only if patient does not have access to the above Pharmacotherapy Nicotine replacement therapy (patches, gum, lozenges, inhalers or nasal spray) Bupropion (Wellbutrin) Chantix Integrative and Lifestyle Medicine Services: Acupuncture Holistic Psychotherapy Meditation Yoga And more The eCoach program Expert tips tailored to you Behavioral replacements Recognizing individual triggers On your schedule Pharmacy consultation You can meet with a pharmacist (either online or in person) to discuss smoking cessation medications, including: Nicotine replacement therapy: gum, patches, lozenges, inhalers or nasal spray Bupropion SR Varenicline (Chantix ) The [place] [employer] (ACS) has a section devoted to quitting tobacco with information on where to get help, interactive tools, the relationship of tobacco and cancer, how to keep your kids smoke-free, smoke-free communities and the ACS s annual [place] Smokeout. Visit this link for more info: https://www.cancer.org/cancer/ri sk-prevention/tobacco/guide-quit ting-smoking.html The [place] [employer] has tools, tips, support and fact sheets to help you stop smoking or to help a loved one quit. There s also more information about [place] From Smoking , the program we use in our smoking classes at [facility]. Visit this link for more info: https://www.lung.org/quit-smokin g/wxwx-odncwrg-akka-smoking The National Cancer Mc[place] s site, Smokefree.gov, has an abundance of free and accurate resources to encourage smokers to stop: Smokefree apps for your smartphone offer individualized guidance once you input your information You can sign up for the Smokefree[employer] text messaging program, which sends you daily text messages with encouragement, tips and advice to help making quitting easier Create a personalized Quit Plan by choosing a quit date and answering seven questions Take a quiz on your withdrawal symptoms See how you can prepare to quit -NOW is the national portal to a network of state quitlines. Quitlines offer evidence-based support--like counseling, referrals to local programs, and free medication--to people who want to quit tobacco. documented in this encounter [facility] 10-23-2024 Progress note Formatting of t his note might be different from the original. EH - S: Karan is a 34 year old female who presents at 24w3d for a routine visit. Feeling movement. Denies headache, visual changes, chest pain, shortness of breath, vaginal bleeding, leakage of fluid, or dysuria. Reports cough present since July. Reports yeast infection that's improving with Monistat 7. O: See flow sheet Gen: No apparent distress Abd: Gravid, nontender, S=D, 22 lb TWG ASSESSMENT/PLAN: 1. Supervision of high risk in second trimester ([facility]) - ICD9: V23.9, ICD10: O09.92 (primary diagnosis) - Continue PNV and LDA - Follow up with PCP about ongoing cough, encouraged vaping cessation - To notify if yeast symptoms aren't resolved after Monistat 7 use, resolving at this time 2. 24 weeks gestation of ([facility]) - ICD9: V22.2, ICD10: Z3A.24 - GTT, CBC, RPR next visit 3. Multigravida of advanced maternal age in second trimester ([facility]) - ICD9: 659.63, ICD10: O09.522 - Age 34 at JANET 4. Hx of section - ICD9: V45.89, ICD10: Z98.891 - Planning repeat c/s, 02/03 at 12 pm with DM 5. Rubella non-immune status, antepartum ([facility]) - ICD9: 646.83, V15.83, ICD10: O09.899, Z28.39 - Offer MMR 6. Tobacco use disorder - ICD9: 305.1, ICD10: F17.200 - No longer smoking, vaping at this time - Encouraged cessation - Written resources provided PTL precautions reviewed. RTO in 4 weeks or sooner as needed. Lore Abdalla APRN.[employer] COUNSEL [facility] 10-23-2024 Miscellaneous Notes EH - S: Karan is a 34 year old female who presents at 24w3d for a routine visit. Feeling movement. Denies headache, visual changes, chest pain, shortness of breath, vaginal bleeding, leakage of fluid, or dysuria. Reports cough present since July. Reports yeast infection that's improving with Monistat 7. O: See flow sheet Gen: No apparent distress Abd: Gravid, nontender, S=D, 22 lb TWG ASSESSMENT/PLAN: 1. Supervision of high risk in second trimester ([facility]) - ICD9: V23.9, ICD10: O09.92 (primary diagnosis) - Continue PNV and LDA - Follow up with PCP about ongoing cough, encouraged vaping cessation - To notify if yeast symptoms aren't resolved after Monistat 7 use, resolving at this time 2. 24 weeks gestation of ([facility]) - ICD9: V22.2, ICD10: Z3A.24 - GTT, CBC, RPR next visit 3. Multigravida of advanced maternal age in second trimester ([facility]) - ICD9: 659.63, ICD10: O09.522 - Age 34 at JANET 4. Hx of section - ICD9: V45.89, ICD10: Z98.891 - Planning repeat c/s, 02/03 at 12 pm with DM 5. Rubella non-immune status, antepartum ([facility]) - ICD9: 646.83, V15.83, ICD10: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 of Alcohol and Drug Abuse Patient Records regulations: The Federal rules restrict any use of the information to criminally investigate or prosecute any alcohol or drug abuse patient.[facility] HospitalIn the event this information is protected by the Federal Confidentiality of Alcohol and Drug Abuse Patient Records regulations: The Federal rules restrict any use of the information to criminally investigate or prosecute any alcohol or drug abuse patient.[facility] HospitalIn the event this information is protected by the Federal Confidentiality of Alcohol and Drug Abuse Patient Records regulations: The Federal rules restrict any use of the information to criminally investigate or prosecute any alcohol or drug abuse patient.[facility] HospitalIn the event this information is protected by the Federal Confidentiality of Alcohol and Drug Abuse Patient Records regulations: The Federal rules restrict any use of the information to criminally investigate or prosecute any alcohol or drug abuse patient.[facility] HospitalIn the event this information is protected by the Federal Confidentiality of Alcohol and Drug Abuse Patient Records regulations: The Federal rules restrict any use of the information to criminally investigate or prosecute any alcohol or drug abuse patient.[facility] HospitalIn the event this information is protected by the Federal Confidentiality of Alcohol and Drug Abuse Patient Records regulations: The Federal rules restrict any use of the information to criminally investigate or prosecute any alcohol or drug abuse patient.[facility] HospitalIn the event this information is protected by the Federal Confidentiality of Alcohol and Drug Abuse Patient Records regulations: The Federal rules restrict any use of the information to criminally investigate or prosecute any alcohol or drug abuse patient.[facility] HospitalIn the event this information is protected by the Federal Confidentiality of Alcohol and Drug Abuse Patient Records regulations: The Federal rules restrict any use of the information to criminally investigate or prosecute any alcohol or drug abuse patient.[facility] HospitalIn the event this information is protected by the Federal Confidentiality of Alcohol and Drug Abuse Patient Records regulations: The Federal rules restrict any use of the information to criminally investigate or prosecute any alcohol or drug abuse patient.[facility] HospitalIn the event this information is protected by the Federal Confidentiality of Alcohol and Drug Abuse Patient Records regulations: The Federal rules restrict any use of the information to criminally investigate or prosecute any alcohol or drug abuse patient.[facility] HospitalIn the event this information is protected by the Federal Confidentiality of Alcohol and Drug Abuse Patient Records regulations: The Federal rules restrict any use of the information to criminally investigate or prosecute any alcohol or drug abuse patient.[facility] HospitalIn the event this information is protected by the Federal Confidentiality of Alcohol and Drug Abuse Patient Records regulations: The Federal rules restrict any use of the information to criminally investigate or prosecute any alcohol or drug abuse patient.[facility] HospitalIn the event this information is protected by the Federal Confidentiality of Alcohol and Drug Abuse Patient Records regulations: The Federal rules restrict any use of the information to criminally investigate or prosecute any alcohol or drug abuse patient.[facility] HospitalIn the event this information is protected by the Federal Confidentiality of Alcohol and Drug Abuse Patient Records regulations: The Federal rules restrict any use of the information to criminally investigate or prosecute any alcohol or drug abuse patient.[facility] HospitalIn the event this information is protected by the Federal Confidentiality of Alcohol and Drug Abuse Patient Records regulations: The Federal rules restrict any use of the information to criminally investigate or prosecute any alcohol or drug abuse patient.[facility] HospitalIn the event this information is protected by the Federal Confidentiality of Alcohol and Drug Abuse Patient Records regulations: The Federal rules restrict any use of the information to criminally investigate or prosecute any alcohol or drug abuse patient.[facility] HospitalIn the event this information is protected by the Federal Confidentiality of Alcohol and Drug Abuse Patient Records regulations: The Federal rules restrict any use of the information to criminally investigate or prosecute any alcohol or drug abuse patient.[facility] Care Teams (unrecognized sec tion and content) Software Quality Specialist Relationship Specialty Start Date End Date Jasmin Calzada MD [address] [place] [address] PCP - General Family Practice 07/22/20 Shama Rogers MD [address] [place] [address] Ophthalmology 03/11/20 Software Quality Specialist Relationship Specialty Start Date End Date Jasmin Calzada MD [address] [facility] [place] [address] PCP - General Family Practice 07/22/20 Shama Rogers MD [address] [facility] [place] [address] Ophthalmology 03/11/20 Software Quality Specialist Relationship Specialty Start Date End Date Jasmin Calzada MD [address] [place] [address] PCP - General Family Practice 07/22/20 Shama Rogers MD [address] [facility] [place] [place] [address] Ophthalmology 03/11/20 Software Quality Specialist Relationship Specialty Start Date End Date Jasmin Calzada MD [address] [place] [address] PCP - General Family Practice 07/22/20 Shama Rogers MD [address] [place] [address] Ophthalmology 03/11/20 Software Quality Specialist Relationship Specialty Start Date End Date Jasmin Calzada MD [address] [place] [address] PCP - General Family Practice 07/22/20 Shama Rogers MD [address] [facility] [place] [address] Ophthalmology 03/11/20 Software Quality Specialist Relationship Specialty Start Date End Date Jasmin Calzada MD [address] [facility] [place] [address] PCP - General Family Medicine 07/22/20 Shama Rogers MD [address] [place] [address] Ophthalmology 03/11/20 Software Quality Specialist Relationship Specialty Start Date End Date Jasmin Calzada MD [address] [place] [address] PCP - General Family Medicine 07/22/20 Shama Rogers MD [address] [facility] [place] [address] Ophthalmology 03/11/20 Software Quality Specialist Relationship Specialty Start Date End Date Jasmin Calzada MD [address] [place] [address] PCP - General Family Medicine 07/22/20 Shama Rogers MD [address] [place] [address] Ophthalmology 03/11/20 Software Quality Specialist Relationship Specialty Start Date End Date Jasmin Calzada MD [address] [place] [address] PCP - General Family Medicine 07/22/20 Shama Rogers MD [address] [place] [address] Ophthalmology 03/11/20 Software Quality Specialist Relationship Specialty Start Date End Date Jasmin Calzada MD [address] [place] [address] PCP - General Family Medicine 07/22/20 Shama Rogers MD [address] [facility] [place] [place] [address] Ophthalmology 03/11/20 Software Quality Specialist Relationship Specialty Start Date End Date Jasmin Calzada MD [address] [place] [address] PCP - General Family Medicine 07/22/20 Shama Rogers MD [address] [place], [place] [id number] Ophthalmology 03/11/20 Team Status: Active Member Role Status Dates Dr. Franky Steve III, MD Family Provider Active Dr. Herman Calzada MD Primary Care Provider Acti ve Team Status: Inactive Member Role Status Dates Dr. Herman Calzada MD Primary Care Provider Acti ve Jerrod BRANDT PA Attending Provider, Referring Provi kaylen Active Software Quality Specialist Relationship Specialty Start Date End Date Jasmin Calzada MD [address] [place] [address] PCP - General Family Medicine 07/22/20 Shama Rogers MD [address] [place], [place] [id number] Ophthalmology 03/11/20 Software Quality Specialist Relationship Specialty Start Date End Date Jasmin Calzada MD [address] [place] [address] PCP - General Family Medicine 07/22/20 Shama Rogers MD [address] [place], [place] [id number] Ophthalmology 03/11/20 Software Quality Specialist Relationship Specialty Start Date End Date Jasmin Calzada MD [address] [place] [address] PCP - General Family Medicine 07/22/20 Shama Rogers MD [address] [place] [address] Ophthalmology 03/11/20 Software Quality Specialist Relationship Specialty Start Date End Date Jasmin Calzada MD [address] [place] [address] PCP - General Family Medicine 07/22/20 Shama Rogers MD [address] [place] [address] Ophthalmology 03/11/20 Software Quality Specialist Relationship Specialty Start Date End Date Jasmin Calzada MD [address] [place] [address] PCP - General Family Medicine 07/22/20 Shama Rogers MD [address] [facility] [place] [place] [address] Ophthalmology 03/11/20 Software Quality Specialist Relationship Specialty Start Date End Date Jasmin Calzada MD [address] [place] [address] PCP - General Family Medicine 07/22/20 Shama Rogers MD [address] [facility] [place] [place] [address] Ophthalmology 03/11/20 Software Quality Specialist Relationship Specialty Start Date End Date Jasmin Calzada MD [address] [place] [address] PCP - General Family Medicine 07/22/20 Shama Rogers MD [address] [place], [place] [id number] Ophthalmology 03/11/20 Software Quality Specialist Relationship Specialty Start Date End Date Jasmin Calzada MD [address] [place] [address] PCP - General Family Medicine 07/22/20 Shama Rogers MD [address] [place] [address] Ophthalmology 03/11/20 Software Quality Specialist Relationship Specialty Start Date End Date Jasmin Calzada MD [address] [place] [address] PCP - General Family Medicine 07/22/20 Shama Rogers MD [address] [place], [place] [id number] Ophthalmology 03/11/20 PodlogarGerri FINISH GRINDER.[place] COUNSEL [address] [place] [address] Workers Compensation Claims Adjuster Family Medicine 03/02/24 Erika Cruz APRN.[place] [place] [employer]SEL [address] [place], [place] [address] Workers Compensation Claims Adjuster Family Medicine 06/17/24 Software Quality Specialist Relationship Specialty Start Date End Date Jasmin Calzada MD [address] [place] [address] PCP - General Family Medicine 07/22/20 Shama Rogers MD [address] [facility] [place] [address] Ophthalmology 03/11/20 Podlogar, Gerri FINISH GRINDER.[place] COUNSEL [address] [place] [address] Workers Compensation Claims Adjuster [facility] 03/02/24 Erika Cruz APRN.[place] COUNSEL [address] [place] [address] [facility] 06/17/24 Software Quality Specialist Relationship Specialty Start Date End Date Jasmin Calzada MD [address] [place] [address] PCP - General Family Medicine 07/22/20 Shama Rogers MD [address] [place] [address] Ophthalmology 03/11/20 Podlogar, Gerri FINISH GRINDER.[place] COUNSEL [address] [place] [address] Workers Compensation [facility] 03/02/24 Erika Cruz FINISH GRINDER.[place] COUNSEL [address] [place] [address] Workers Compensation Claims [facility] 06/17/24 Software Quality Specialist Relationship Specialty Start Date End Date Jasmin Calzada MD [address] [place] [address] PCP - General Family Medicine 07/22/20 Shama Rogers MD [address] [place], [place] [id number] Ophthalmology 03/11/20 Podlogar, Gerri, FINISH GRINDER.[place] COUNSEL [address] [place] [address] Workers Compensation Claims Adjuster Family [facility] 03/02/24 Erika Cruz APRN.[place] COUNSEL [address] [place] [address] [facility] 06/17/24 Software Quality Specialist Relationship Specialty Start Date End Date Jasmin Calzada MD [address] [place] [address] PCP - General Family Medicine 07/22/20 Shama Rogers MD [address] [place] [address] Ophthalmology 03/11/20 Podlogar, CANDIDA Talley.[place] COUNSEL [address] [place] [address] [facility] 03/02/24 Erika Cruz APRN.[place] COUNSEL [address] [place] [address] [facility] 06/17/24 Software Quality Specialist Relationship Specialty Start Date End Date Jasmin Calzada MD [address] [place] [address] PCP - General Family Medicine 07/22/20 Shama Rogers MD [address] [place], [place] [id number] Ophthalmology 03/11/20 PodlogarGerri APRN.[place] COUNSEL [facility] [place] [address] Workers Compensation Claims Adjuster Family Medicine 03/02/24 Erika Cruz APRN.[place] COUNSEL [address] [place] [address] Workers Compensation Claims Adjuster Family Medicine 06/17/24 Software Quality Specialist Relationship Specialty Start Date End Date Jasmin Calzada MD [address] [place] [address] PCP - General Family Medicine 07/22/20 Shama Rogers MD [address] [place], [place] [address] Ophthalmology 03/11/20 Podlogar, Gerri, FINISH GRINDER.[place] COUNSEL [address] [place] [address] Workers Compensation Claims Adjuster Family Medicine 03/02/24 Software Quality Specialist Relationship Specialty Start Date End Date Jasmin Calzada MD [address] [place] [address] PCP - General Family Medicine 07/22/20 Shama Rogers MD [address] [place] [address] Ophthalmology 03/11/20 Podlogar, Gerri, FINISH GRINDER.[place] COUNSEL [address] [place] [address] Workers Compensation Claims Adjuster Family Medicine 03/02/24 Erika Cruz FINISH GRINDER.[place] COUNSEL [address] [place] [address] Workers Compensation Claims Adjuster Family Medicine 06/17/24 08/11/24 Software Quality Specialist Relationship Specialty Start Date End Date Jasmin Calzada MD [address] [place] [address] PCP - General Family Medicine 07/22/20 Shama Rogers MD [address] [place], [place] [address] Ophthalmology 03/11/20 Podlogar, Gerri FINISH GRINDER.[place] COUNSEL [address] [place] [address] Workers Compensation [facility] 03/02/24 Software Quality Specialist Relationship Specialty Start Date End Date Jasmin Calzada MD [address] [place] [address] PCP - General Family Medicine 07/22/20 Shama Rogers MD [address] [facility] [place], [place] [id number] Ophthalmology 03/11/20 Podlogar, Gerri, FINISH GRINDER.[place] COUNSEL [address] [place] [address] [facility] 03/02/24 Erika Cruz APRN.[place] COUNSEL [address] [place], [place] [address] Workers Compensation [facility] 09/05/24 Software Quality Specialist Relationship Specialty Start Date End Date Jasmin Calzada MD [address] [place] [address] PCP - General Family Medicine 07/22/20 Shama Rogers MD [address] [facility] [place], [place] [address] Ophthalmology 03/11/20 Podlogar, Gerri, FINISH GRINDER.[place] COUNSEL [address] [place] [address] [facility] 03/02/24 Erika Cruz APRN.[place] COUNSEL [address] [place] [address] [facility] 09/05/24 Software Quality Specialist Relationship Specialty Start Date End Date Jasmin Calzada MD [address] [place] [address] PCP - General Family Medicine 07/22/20 Shama Rogers MD [address] [place], [place] [id number] Ophthalmology 03/11/20 Podlogar, BOYD TalleyN.[place] COUNSEL [facility] [place] [address] [facility] 03/02/24 Erika Cruz FINISH GRINDER.[place] COUNSEL [facility] [place] [address] [facility] 09/05/24 Software Quality Specialist Relationship Specialty Start Date End Date Jasmin Calzada MD [address] [place] [address] PCP - General Family Medicine 07/22/20 Shama Rogers MD [address] [place], [place] [address] Ophthalmology 03/11/20 Podlogar, Gerri, FINISH GRINDER.[place] COUNSEL [facility] [place] [address] [facility] 03/02/24 Erika Cruz APRN.[place] [place] COUNSEL [address] [place], [place] [address] [facility] 09/05/24 Software Quality Specialist Relationship Specialty Start Date End Date Jasmin Calzada MD [address] [place] [address] PCP - General Family Medicine 07/22/20 Shama Rogers MD [address] [place] [address] Ophthalmology 03/11/20 Podlogar, CANDIDA Talley.[place] COUNSEL [address] [place] [address] [facility] 03/02/24 Erika Cruz APRN.[place] [place] COUNSEL [address] [place], [place] [address] [facility] 09/05/24 Software Quality Specialist Relationship Specialty Start Date End Date Jasmin Calzada MD [address] [place] [address] PCP - General Family Medicine 07/22/20 Shama Rogers MD [address] [place] [address] Ophthalmology 03/11/20 Podlogar, CANDIDA Talley.[place] COUNSEL [address] [place] [address] [facility] Medicine 03/02/24 Erika Cruz APRN.[place] COUNSEL [address] [place] [address] Workers Compensation Claims Adjuster Family [facility] 09/05/24 Software Quality Specialist Relationship Specialty Start Date End Date Jasmin Calzada MD [address] [place] [address] PCP - General Family Medicine 07/22/20 Shama Rogers MD [address] [place] [address] Ophthalmology 03/11/20 Podlogar, CANDIDA Talley.[place] COUNSEL [address] [place] [address] Workers Compensation Claims Adjuster Family Medicine 03/02/24 Erika Cruz FINISH GRINDER.[place] COUNSEL [address] [place] [id number] Workers Compensation Claims Adjuster [facility] 09/05/24 Software Quality Specialist Relationship Specialty Start Date End Date Jasmin Calzada MD [facility] [place] [address] PCP - General Family Medicine 07/22/20 Shama Rogers MD [address] [place], [place] [id number] Ophthalmology 03/11/20 PodlogarGerri APRN.[place] COUNSEL [facility] [place] [address] Workers Compensation Claims Adjuster Family Medicine 03/02/24 Erika Cruz FINISH GRINDER.[place] COUNSEL [facility] [place], [place] [address] [phone] [facility] 09/05/24 Software Quality Specialist Relationship Specialty Start Date End Date Jasmin Calzada MD [address] [place], [place] [id number] PCP - General Family Medicine 07/22/20 Shama Rogers MD [address] [place] [address] Ophthalmology 03/11/20 PodlogGerri knight APRN.[place] COUNSEL [address] [place], [place] [address] [facility] 03/02/24 Erika Cruz APRN.[place] [place] COUNSEL [address] [place], [place] [id number] [facility] 09/05/24 Team Status: Active Member Role/Relationship Status Dates Dr. Herman Calzada MD Primary care physician Act alicia Team Status: Inactive Member Role/Relationship Status Dates Dr. Herman Calzada MD Primary care physician Act alicia Start: December 25, 2024 End: December 25, 2024 Dr. Herman Calzada MD Referring Provider Active Start: December 25, 2024 End: December 25, 2024 Erik BRANDT, PA Attending physician Active Start: December 25, 2024 End: December 25, 2024 Goals (unrecognized section and content) Goals may be documented in a n alternate sectionGoals may be documented in an alternate sectionGoals may be documented in an alternate sectionGoals may be documented in an alternate sectionGoals may be documented in an alternate section FOR RECORDS PERTAINING TO PATIENTS WHO ARE [...] BE BASED ON THE PRIMARY CLINICAL RECORDS. [facility] [employer] [facility]. provides no warranty or guarantee of the accuracy or completeness of information in this document.
[2025-02-03 10:14] LABS: Hematocrit 31.7 % (37-47); Hemoglobin 11.0 g/dL (12.0-15.0); Immature Granulocytes Count 0.290 X10^3/uL (0.0-0.0); Mean Corp Hgb Conc 34.7 g/dL (32-36); Mean Corpuscular Volume 87.3 fL (81-99); Mean Platelet Vol. 12.3 fl (6.2-12.0); NRBC Flagged by Analyzer 0 % (0-5); Platelet Count 113 K/mm3 (150-450); RBC Distribution Width CV 12.6 % (11.6-14.6); RBC Distribution Width SD 40.3 fl (35.1-43.9); Red Blood Count 3.63 M/mm3 (4.2-5.4); White Blood Count 13.2 K/mm3 (4.4-11.0)
[2025-02-03] MEDS: Lactated Ringers 1,000 ML 150 ML IV (10:38)
[2025-02-03 10:42] LABS: Syphilis Antibodies Nonreactive (Nonreactive)
[2025-02-03 11:46] LABS: Barbiturate Urine NEGATIVE (< 200 ng/mL); Benzodiazepine Urine NEGATIVE (< 200 ng/mL); PCP Urine NEGATIVE (< 25 ng/mL); THC Urine NEGATIVE (< 50 ng/mL)
[2025-02-03] MEDS: Lactated Ringers 500 ML IV (12:00)
[2025-02-03] MEDS: Cefazolin 1 GM/5 ML Vial 2 GM IV (12:00)
[2025-02-03] MEDS: morphine PF (epidural) 5 MG/10 ML Vial IV (12:06)
[2025-02-03] MEDS: TRANEXAMIC ACID 1,000 MG/10 ML ML 1000 MG IV (12:09)
[2025-02-03] MEDS: TRANEXAMIC ACID 1,000 MG in 0.9% Normal Saline (100mL Bag) 100 ML 440 MG IV (12:09)
[2025-02-03] MEDS: NORMAL SALINE IV (12:33)
--- NOTE | 2025-02-03 12:48 | EX.PCM.OBRPT ---
Maternal Data Information Final JANET Source: <20 weeks Gestational age: 39 weeks Operative Report (OB) Procedure Details Date of Procedure: 02/03/25 Procedure Start Time: 12:20 Procedure Stop Time: :52 Time of Delivery: 12:24 Pre-Operative Diagnosis: Repeat Elective Post-Operative Diagnosis: Same as Pre-operative diagnosis Classification: Scheduled Type of Anesthesia: Spinal Antibiotic Given: Ancef 2 grams IV x1 Drain: Alberto to straight drain Estimated Blood Loss: 650 Fluids Replaced: 1000cc Findings Description of surgery: After informed consent was obtained the patient was taken the operating room she was given spinal anesthesia. She was then placed in the supine position. She was prepped and draped in the normal sterile fashion. Anesthesia was found to be adequate. At this time a Pfannenstiel skin incision was made with a knife was carried down to the underlying layer of the fascia. The fascial incision was then extended laterally using reyes scissor. Attention was then turned to the superior aspect of the fascial edge was grasped with 2 straight Skylar clamps tented up and the rectus muscle dissected off sharply. Rectus muscles were then in the midline bluntly and peritoneum was entered bluntly. Gentle opposing traction was placed. At this time the vesicouterine peritoneum was identified. Scalpel was used to make a uterine incision in a low transverse fashion. The uterus was then entered bluntly gentle opposing traction was placed to extend this incision. Membranes were ruptured clear. 's head was brought to the uterine incision was delivered atraumatically. BODY cord noted and reduced after delivery. was vigorous at delivery and delayed cord clamping performed. Cord was clamped and cut was handed to the waiting nursery team. The Placenta was removed from the uterus. The uterus was then removed from the abdominal cavity. The uterus was cleared of all clots and debris using a lap. At this time the uterine incision was reapproximated using #1 Vicryl in a running locked fashion. Hemostasis was appreciated. Posterior cul-de-sac was then cleared of all clots and debris. Uterus was placed back in the abdominal cavity. Gutters were cleared of all clots and debris. Uterine incision was reevaluated and noted to be of excellent hemostasis. At this time the peritoneum and muscle were grasped with Kellys reapproximated using #2 Vicryl suture in a running fashion. Fascia was then reapproximated using #1 Vicryl in a running fashion. Subcu layer was irrigated with NS, reapproximated with #2 0 plain gut suture in an interrupted fashion. Subcu layer was closed using 4-0 Monocryl/Viryl in a subcu fashion. Dry sterile dressing was applied. Instrument lap needle count correct ×2. Anticipated normal postoperative course. Surgical findings: normal tubes and ovaries Presentation: Vertex Amniotic Membrane Rupture Type: Artificial Amniotic Fluid Description: Clear Placental Delivery Description: Expressed Placenta Disposition: [facility] Specimen collected: No Cord Vessel Description: 3 Vessels Cord Entanglement: Other (body cord x 1 loose ) Nuchal Cord Compression: Without compression Infant A gender: Male (1 minute): 9 (5 minute): 9 Delayed Cord Clamping: Yes Data Operations Leader sewage reticulation drafting officer: Yes Jewelry Dipper: Reg Pereira Tasks completed by foundation assistant: Opening & closing, Retracting and Other (retraction ) Complications Complications: No Admit VTE Documentation VTE Present on Admission: Yes VTE Mechan Device Prophylaxis: SCD's VTE Pharm Prophylaxis Ordered: No Reason Prophylaxis Not Ordered: Procedure Not Indicated
--- NOTE | 2025-02-03 12:50 | PCM.POST.ANE ---
Anesthesia: Postop Eval I Current Vital Signs Temperature: 98 F Pulse Rate: 95 Blood Pressure: 128/64 Respiratory Rate: 14 Pulse Ox: 97 Oxygen Delivery Method: Room Air Assessment Airway patent: Yes Spontaneous unlabored respirations: Yes Mental status: Awake and Calm nausea: No Vomiting: No Anesthesia Complication: No Fluid Hydration Crystalloid volume administer (ml): 1,000 Total IV fluid infused: 1,000 Progress Note Anesthesia document: Postop Eval 1 completed: Yes
--- NOTE | 2025-02-03 12:56 | POSTOPAN2_ITS ---
Anesthesia Postop Eval I Sum Postop Eval Completion status Anesthesia document: Postop Eval 1 completed: Yes Anesthesia Postop Eval I Summary Anesthesia Postop Eval I Summary: Anesthesia Postop Eval I: Assessment Summary Airway patent Yes 02/03/25 12:51 CLINICAL PHARMACY [email or web address] Spontaneous unlabored Yes 02/03/25 12:51 CLINICAL PHARMACY MANAGER.MDOT respirations Mental status Awake,Calm 02/03/25 12:51 CLINICAL PHARMACY MANAGER.MDOT nausea No 02/03/25 12:51 CLINICAL PHARMACY MANAGER.MDOT Vomiting No 02/03/25 12:51 CLINICAL PHARMACY [email or web address] Anesthesia Postop Eval I: Fluid Summary Crystalloid volume administer 1,000 02/03/25 12:51 CLINICAL PHARMACY MANAGER.MDOT (ml) Colloids volume administered ( ml) Blood Product volume administered (ml) Total IV fluid infused 1,000 02/03/25 12:51 CLINICAL PHARMACY MANAGER.MDOT Anesthesia Postop Eval I: Summary Notes Anesthesia Complication No 02/03/25 12:51 CLINICAL PHARMACY MANAGER.MDOT Anesthesia Complication Comment: Post-operative progress note Anesthesia: Postop Eval II Evaluation Mental status: Awake and Calm Pain Level: 0 nausea: No Vomiting: No Complications Anesthesia Complication: No
--- NOTE | 2025-02-03 12:56 | PCM.POSTANE2 ---
Anesthesia Postop Eval I Sum Postop Eval Completion status Anesthesia document: Postop Eval 1 completed: Yes Anesthesia Postop Eval I Summary Anesthesia Postop Eval I Summary: Anesthesia Postop Eval I: Assessment Summary Airway patent Yes 02/03/25 12:51 RN [email or web address] Spontaneous unlabored Yes 02/03/25 12:51 RN [email or web address] respirations Mental status Awake,Calm 02/03/25 12:51 RN [email or web address] nausea No 02/03/25 12:51 RN [email or web address] Vomiting No 02/03/25 12:51 RN [email or web address] Anesthesia Postop Eval I: Fluid Summary Crystalloid volume administer 1,000 02/03/25 12:51 RN [email or web address] (ml) Colloids volume administered ( ml) Blood Product volume administered (ml) Total IV fluid infused 1,000 02/03/25 12:51 RN [email or web address] Anesthesia Postop Eval I: Summary Notes Anesthesia Complication No 02/03/25 12:51 RN [email or web address] Anesthesia Complication Comment: Post-operative progress note Anesthesia: Postop Eval II Evaluation Mental status: Awake and Calm Pain Level: 0 nausea: No Vomiting: No Complications Anesthesia Complication: No
[2025-02-03] MEDS: Oxytocin 15 Units/NS 250ml 15 UNITS/250 ML IV.SOLN 83 UNITS IV (13:05)
[2025-02-03] MEDS: Ketorolac 30 MG/ML Syringe IV ×2 (13:57→20:04)
[2025-02-03] MEDS: 0.9% Saline Lock 10 ML Syringe IV (13:59)
[2025-02-03] MEDS: Lactated Ringers 1,000 ML 100 ML IV (16:27)
[2025-02-04 00:30] VITALS: BP 128/80; PULSE 79; RESP 14; TEMP 36.5; O2SAT 98
[2025-02-04 03:00] VITALS: BP 112/77; PULSE 90; RESP 14; TEMP 36.6; O2SAT 97
[2025-02-04] MEDS: 0.9% Saline Lock 10 ML Syringe IV ×2 (03:08→08:24)
[2025-02-04] MEDS: Ketorolac 30 MG/ML Syringe IV ×2 (03:08→08:24)
[2025-02-04 06:05] LABS: Hematocrit 27.5 % (37-47); Hemoglobin 9.2 g/dL (12.0-15.0); Mean Corp Hgb Conc 33.5 g/dL (32-36); Mean Corpuscular Volume 90.2 fL (81-99); Mean Platelet Vol. 12.0 fl (6.2-12.0); Platelet Count 102 K/mm3 (150-450); RBC Distribution Width CV 12.6 % (11.6-14.6); RBC Distribution Width SD 41.4 fl (35.1-43.9); Red Blood Count 3.05 M/mm3 (4.2-5.4); White Blood Count 14.9 K/mm3 (4.4-11.0)
[2025-02-04 08:00] VITALS: BP 117/74; PULSE 75; RESP 16; TEMP 36.3; O2SAT 98
[2025-02-04] MEDS: Senna/Docusate Sodium 1 Tablet PO (08:29)
[2025-02-04] MEDS: MEASLES,MUMPS,RUBELLA VACC/PF 0.5 ML SC (08:30)
--- NOTE | 2025-02-04 08:31 | PCM.PN.OB ---
Subjective Subjective Doing well per patient and nursing staff. Ambulating and taking PO without difficulty. Voiding and passing flatus. Pain controlled. , services for assistance. Denies headache, visual changes, chest pain, shortness of breath, leg pain or increased bleeding. Lochia normal. Objective Data Objective Data Vital Signs: Vital Signs Temp Pulse Resp BP Pulse Ox O2 Del Method 97.8 F 90 14 112/77 97 Room Air 02/04/25 03:00 02/04/25 03:00 02/04/25 03:00 02/04/25 03:00 02/04/25 03:00 02/04/25 03:00 Oxygen Delivery Method Room Air Weight: 183 lb Body Mass Index (BMI) 31.4 Intake & Output: Intake and Output for Last 24 Hours 02/02/25 02/03/25 02/04/25 23:59 23:59 23:59 Intake Total 2469.87 / 2469.87 Output Total 1100 / 1100 700 / 700 Balance 1369.87 / 1369.87 -700 / -700 Lab / Micro Data 02/04/25 05:45 Labs: Laboratory Results - last 24 hr 02/03/25 09:40: WBC 13.2 H, RBC 3.63 L, Hgb 11.0 L, Hct 31.7 L, MCV 87.3, MCH 30.3, MCHC 34.7, RDW Std Deviation 40.3, RDW Coeff of Kirby 12.6, Plt Count 113 L, MPV 12.3 H, Immature Gran % (Auto) 2.200 H, Neut % (Auto) 80.1 H, Lymph % (Auto) 11.0 L, Lincoln % (Auto) 5.2, Eos % (Auto) 1.1, Baso % (Auto) 0.4, Absolute Neuts (auto) 10.6 H, Absolute Lymphs (auto) 1.45, Nucleated RBC % 0, Syphilis Total Ab Nonreactive, Blood Type O POSITIVE, Antibody Screen NEGATIVE 02/03/25 10:50: Urine Opiates Screen NEGATIVE, U Buprenorphine Qual NEGATIVE, Ur Oxycodone Screen NEGATIVE, Urine Methadone Screen NEGATIVE, Urine Fentanyl Screen NEGATIVE, Ur Barbiturates Screen NEGATIVE, Ur Phencyclidine Scrn NEGATIVE, Ur Amphetamines Screen NEGATIVE, U Benzodiazepines Scrn NEGATIVE, Urine Cocaine Screen NEGATIVE, U Cannabinoids Screen NEGATIVE 02/04/25 05:45: WBC 14.9 H, RBC 3.05 L, Hgb 9.2 L, Hct 27.5 L, MCV 90.2, MCH 30.2, MCHC 33.5, RDW Std Deviation 41.4, RDW Coeff of Kirby 12.6, Plt Count 102 L, MPV 12.0 ROS Constitutional Constitutional: Reports systems reviewed and no addt'l complaints, except as documented; Denies headache(s) Eyes Eyes: Denies acute decrease in peripheral vision, blurry vision or change in vision ENT HEENT: Reports systems reviewed and no addt'l complaints, except as documented Cardiovascular Cardiovascular: Denies chest pain or dizziness Respiratory/Chest Respiratory/Chest: Denies cough, dyspnea, dyspnea on exertion, shortness of breath at rest or shortness of breath with exertion Gastrointestinal Gastrointestinal: Denies abdominal pain, diarrhea, nausea or vomiting Genitourinary Genitourinary: Denies abdominal discomfort Musculoskeletal Musculoskeletal: Denies limited range of motion Integumentary Integumentary: Reports systems reviewed and no addt'l complaints, except as documented Neurologic Neurologic: Reports systems reviewed and no addt'l complaints, except as documented Psychiatric Psychiatric: Reports systems reviewed and no addt'l complaints, except as documented Endocrine Endocrinology: Reports systems reviewed and no addt'l complaints, except as documented Hematologic/Lymphatic Hematologic/Lymphatic: Reports systems reviewed and no addt'l complaints, except as documented Allergic/Immunologic Allergic/Immunologic: Reports systems reviewed and no addt'l complaints, except as documented Physical Exam Const alert and oriented x3 General Appearance: cooperative Orientation / Consciousness: awake, oriented to person, oriented to place and oriented to time Exam Limitations: no limitations HEENT normocephalic Head and Scalp: normal to inspection, normocephalic and atraumatic Face and Sinus: normal facial exam Eyes General Eye: normal appearance of both eyes Neck full ROM Chest Chest: symmetrical chest wall rise Resp normal respiratory effort and normal air movement Auscultation: clear to auscultation bilaterally Cardio regular rate, regular rhythm, S1 normal heart sound, S2 normal heart sound, no murmurs, no rub, no gallops and no clicks GI normal to inspection, nondistended, normoactive bowel sounds and non-tender GI Narrative: Fundus firm 2 below U. Dressing dry and intact Narrative: Normal lochia rubra Bladder / Kidney Exam: no CVA tenderness Back/Spine normal ROM Extremity normal to inspection and full ROM Skin no rashes or lesions noted Neuro oriented x3, CN's II-XII intact bilaterally and moves all extremities Sensorium / Orientation: awake, alert and oriented to person Motor Exam: clonus absent Deep Tendon Reflexes: Rt Patellar (L4): 2+ and Lt Patellar (L4): 2+ Assessment & Plan (1) Gestational thrombocytopenia: (2) S/P repeat low transverse : (3) History of depression: PLAN: Plan 1) Routine care, POD #1 2) Vitals signs stable 3) Pain controlled 4) , services PRN 5) D/C home today per patient request 6) Follow up in 1 weeks and 6 weeks
--- NOTE | 2025-02-04 08:34 | PCM.DC.SUM ---
Providers Date of Admission: 02/03/25 Primary Care Physician: Dr. Herman Calzada MD Reason For Visit: SCHEDULED Diagnosis Discharge Diagnosis (1) Gestational thrombocytopenia: Status: Acute Code(s): O99.119 - Other diseases of the blood and blood-forming organs and certain disorders involving the immune mechanism complicating , unspecified trimester; D69.6 - Thrombocytopenia, unspecified (2) S/P repeat low transverse : Status: Acute Code(s): Z98.891 - History of uterine scar from previous surgery (3) History of depression: Status: Acute Code(s): Z86.59 - Personal history of other mental and behavioral disorders Plan 1) Routine care, POD #1 2) Vitals signs stable 3) Pain controlled 4) , services PRN 5) D/C home today per patient request 6) Follow up in 1 weeks and 6 weeks Medications at Discharge Home Medications vit no.95-ferrous fumarate 28 mg-folic acid 800 mcg tablet () 1 tab PO DAILY 02/03/25 acetaminophen 500 mg tablet 1,000 mg (2 x 500 mg) PO Q6 #0 tabs 02/04/25 ibuprofen 600 mg tablet 600 mg PO Q6H #0 tabs 02/04/25 sennosides 8.6 mg-docusate sodium 50 mg tablet (Stimulant Laxative Plus) 1 - 2 tab PO DAILY #0 tabs 02/04/25 Hospital Course Summary of Care Provided Minutes Spent on Discharge: 15 Hospital Course: Presented on 02/03/25 for repeat low transverse section. Uncomplicated postoperative course. Discharge home on postoperative day #1 per patient request. Weight / BMI Weight Weight: 183 lb Body Mass Index (BMI) 31.4 ABG / Lab / Microbiology Data 02/04/25 05:45 Laboratory: Laboratory Results - last 24 hr 02/03/25 09:40: WBC 13.2 H, RBC 3.63 L, Hgb 11.0 L, Hct 31.7 L, MCV 87.3, MCH 30.3, MCHC 34.7, RDW Std Deviation 40.3, RDW Coeff of Kirby 12.6, Plt Count 113 L, MPV 12.3 H, Immature Gran % (Auto) 2.200 H, Neut % (Auto) 80.1 H, Lymph % (Auto) 11.0 L, Humphreys % (Auto) 5.2, Eos % (Auto) 1.1, Baso % (Auto) 0.4, Absolute Neuts (auto) 10.6 H, Absolute Lymphs (auto) 1.45, Nucleated RBC % 0, Syphilis Total Ab Nonreactive, Blood Type O POSITIVE, Antibody Screen NEGATIVE 02/03/25 10:50: Urine Opiates Screen NEGATIVE, U Buprenorphine Qual NEGATIVE, Ur Oxycodone Screen NEGATIVE, Urine Methadone Screen NEGATIVE, Urine Fentanyl Screen NEGATIVE, Ur Barbiturates Screen NEGATIVE, Ur Phencyclidine Scrn NEGATIVE, Ur Amphetamines Screen NEGATIVE, U Benzodiazepines Scrn NEGATIVE, Urine Cocaine Screen NEGATIVE, U Cannabinoids Screen NEGATIVE 02/04/25 05:45: WBC 14.9 H, RBC 3.05 L, Hgb 9.2 L, Hct 27.5 L, MCV 90.2, MCH 30.2, MCHC 33.5, RDW Std Deviation 41.4, RDW Coeff of Kirby 12.6, Plt Count 102 L, MPV 12.0 D/C Instructions May resume sexual activity in: 6 weeks Weight Bearing Status: Full weight bearing Lifting Restricted to (Lbs): 20 Call your doctor if your incision/area has: Continuous Slow Oozing, Sudden Increased Bleeding, Increased Pain/ Swelling, Increased Redness, Foul Smelling Discharge and Swelling at the incision site Call your doctor if you observe: Fever of 101 or Higher, Inability to urinate, Inability to have a bowel movement, Using more than 1 pad per hour, Shortness of breath, Dizziness, Fainting spells, Chest pain, Increased palpitations (irregular heartbeat), Calf discomfort and Uncontrolled pain Suture Line Care: Avoid Pulling/Pushing Remove Dressing in: 1 week Cleanse incision/area with: Keep Dressing Clean & Dry DC O2, CPAP, BIPAP Needs Home O2 Discharge instructions: No Meaningful Use Info Meaningful Use Meaningful Use Diagnoses (Choose all that apply): None applicable Discharge Plan Admission Admit Date/Time: 02/03/25 09:31 Primary Reason for Your Visit: Section Attending Provider: Julia Gr Primary Care Provider: Herman Calzada Discharge Orders/Prescriptions Prescriptions: New acetaminophen 500 mg Tablet 1,000 mg PO Q6 Qty: 0 0RF sennosides-docusate sodium [Stimulant Laxative Plus] 8.6-50 mg Tablet 1 - 2 tab PO DAILY Qty: 0 0RF ibuprofen 600 mg Tablet 600 mg PO Q6H Qty: 0 0RF Continued PNV no.95-ferrous fumarate-FA [] 28 mg iron- 800 mcg tablet 1 tab PO DAILY Discontinued aspirin 81 mg tablet,delayed release (DR/EC) 81 mg PO QDAY Referrals / Follow Up: Herman Calzada MD [Primary Care Provider, Family Practice] Disposition Disposition (needs filled in before D/C Order can be placed): Home, Self Care
[2025-02-04 13:45] VITALS: BP 126/75; PULSE 85; RESP 16; TEMP 36.4; O2SAT 96
[2025-02-04 19:57] VITALS: BP 113/80; PULSE 86; RESP 16; TEMP 36.4; O2SAT 97
[2025-02-05 02:17] VITALS: BP 114/71; PULSE 81; RESP 16; TEMP 36.7; O2SAT 97
[2025-02-05] MEDS: Senna/Docusate Sodium 1 Tablet PO (08:28)
[2025-02-05 08:30] VITALS: BP 104/65; PULSE 78; RESP 16; TEMP 36.2; O2SAT 96
--- NOTE | 2025-02-05 08:40 | PCM.PN.OB ---
Subjective Subjective Doing well. Ambulating and voiding without difficulty. Mild lochia. Breast feeding. Objective Data Objective Data Vital Signs: Vital Signs Temp Pulse Resp BP Pulse Ox O2 Del Method 98.1 F 81 16 114/71 97 Room Air 02/05/25 02:17 02/05/25 02:17 02/05/25 02:17 02/05/25 02:17 02/05/25 02:17 02/05/25 02:17 Oxygen Delivery Method Room Air Weight: 83.007 kg Body Mass Index (BMI) 31.4 Intake & Output: Intake and Output for Last 24 Hours 02/03/25 02/04/25 02/05/25 23:59 23:59 23:59 Intake Total 2469.87 / 2469.87 Output Total 1100 / 1100 700 / 700 Balance 1369.87 / 1369.87 -700 / -700 Lab / Micro Data 02/04/25 05:45 ROS Constitutional Constitutional: Denies headache(s) Cardiovascular Cardiovascular: Denies chest pain or dyspnea Gastrointestinal Gastrointestinal: Denies nausea or vomiting Genitourinary Genitourinary: Denies dysuria Physical Exam Const alert General Appearance: cooperative Eyes PERRL and EOMs intact bilaterally Resp normal respiratory effort GI soft to palpation and non-tender GI Narrative: soft, moderate distention, fundus firm, appropriately tender. Abdominal bandage clean dry and intact Uterus Palpation: uterus fundus firm ( below umbilicus) Extremity normal to inspection and full ROM Neuro oriented x3 and CN's II-XII intact bilaterally Psych mental status grossly normal Assessment & Plan (1) S/P repeat low transverse : PLAN: Plan Discharge home
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
== END 2025-02-05 11:00 | disposition home or self-care (01) | DRG 788 ==
PROVIDERS: Admitting Provider Obstetrics & Gynecology; PCP Family Medicine; Referring Provider Obstetrics & Gynecology; Visit Provider Obstetrics & Gynecology
DX: O99.12 Other diseases of the blood and blood-forming organs and certain disorders involving the immune mechanism complicating childbirth (principal); D69.6 Thrombocytopenia, unspecified; O34.211 Maternal care for low transverse scar from previous cesarean delivery; O69.82X0 Labor and delivery complicated by other cord entanglement, without compression, not applicable or unspecified; Z3A.39 39 weeks gestation of pregnancy; Z37.0 Single live birth; Z87.891 Personal history of nicotine dependence; Z86.59 Personal history of other mental and behavioral disorders
CPT/HCPCS: 59050; 80307; 85025; 85027; 86780; 86850; 86900; 86901; 99221; A4216; G0378; J2405